=== PATIENT | female | born 1950 | race Caucasian/White ===

== ENCOUNTER → 2016-10-11 | Outpatient (CLI) | payer MEDICARE ==
[~2016-10-11] MED LIST: ACET500T3 PO; ALLE50TA PO; ASPI1TAB69 PO; ASPI81TA11 PO; ASPI81TA82 PO; BENT20TA PO; CALTCHW5 PO; CALTTAB2 PO; COZA100T PO; COZA50TA PO; DICY10 PO; DIGO0.12 PO; DIPH2%T PO; DIPH25CA PO; ESTR0.5T PO; ESTR1.25 PO; FERR324T4 PO; GLUC1CAP14 PO; GLUC500C4 PO; GLUC500T4 PO; LANO0.1212 PO; MAPA500T13 PO; NAPR-576 PO; NAPR500T PO; TYLE500T PO; VESI10TA PO; VESI10TA4 PO
[2016-10-11 10:41] LABS: HEMATOCRIT 33.5 % (35.0-46.0); MEAN CELL VOLUME 93.4 FL (80.0-100.0); MEAN CORPUSCULAR HEMOGLOBIN 32.2 PG (27.0-34.0); MEAN CORPUSCULAR HGB CONC 34.5 % (32.0-36.0); PLATELET COUNT 241 TH/MM3 (150-450); RED BLOOD COUNT 3.59 MIL/MM3 (4.00-5.30); RED CELL DISTRIBUTION WIDTH 13.3 % (11.6-17.2); REVIEW FLAG FINAL; WHITE BLOOD COUNT 6.6 TH/MM3 (4.0-11.0)
[2016-10-11 11:10] LABS: ALKALINE PHOSPHATASE 48 U/L (45-117); ALT (GPT) 19 U/L (10-53); ANION GAP 8 MEQ/L (5-15); AST (GOT) 13 U/L (15-37); BICARBONATE 30.5 MEQ/L (21.0-32.0); BLOOD UREA NITROGEN 16 MG/DL (7-18); CHLORIDE 105 MEQ/L (98-107); GLOMERULAR FILTRATION RATE 54 ML/MIN (>89); GLUCOSE,FASTING 93 MG/DL (74-99); HDL CHOLESTEROL 62.3 MG/DL (40.0-60.0); LDL CHOLESTEROL 67 MG/DL (0-99); POTASSIUM 3.9 MEQ/L (3.5-5.1); SODIUM (NA) 143 MEQ/L (136-145); TOTAL BILIRUBIN ADULT 0.5 MG/DL (0.2-1.0)
== END ==
LOC: CLAB 10:00
PROVIDERS: ATTEND Family Medicine
DX: I10 Essential (primary) hypertension (principal); K21.9 Gastro-esophageal reflux disease without esophagitis; K57.30 Diverticulosis of large intestine without perforation or abscess without bleeding; I48.0 Paroxysmal atrial fibrillation; M15.9 Polyosteoarthritis, unspecified
CPT/HCPCS: 36415; 80053; 80061; 84443; 85027

== ENCOUNTER → 2016-12-23 | Day surgery (SDC) | payer MEDICARE ==
[~2016-12-23] VITALS: Ht 172.7 cm; Wt 75.0 kg
[~2016-12-23] MED LIST changes: -ACET500T3 PO; -ALLE50TA PO; -ASPI1TAB69 PO; -ASPI81TA82 PO; -BENT20TA PO; -CALTTAB2 PO; +CHLORHEXIDINE GLUCONATE 2 % 1 PACK (2 CLOTHS) TOPICAL PRN; -COZA50TA PO; +CYCLOPENTOLATE HCL 1% OPHT SOLN 2 ML BTL LEFT EYE SCH; +CYCLOPENTOLATE HCL 1% OPHT SOLN 2 ML BTL ONE; -DIPH2%T PO; +FLURBIPROFEN 0.03% OPHT SOLN 2.5 ML BTL LEFT EYE SCH; +FLURBIPROFEN 0.03% OPHT SOLN 2.5 ML BTL ONE; -GLUC1CAP14 PO; -GLUC500C4 PO; +INSULIN HUMAN REGULAR 1,000 UNITS/10 ML VIAL SQ PRN; +LACTATED RINGER'S 1000 ML IV PRN; -LANO0.1212 PO; +LIDOCAINE HCL 1% PF 30 ML VIAL ONE; +LIDOCAINE HCL 2% JELLY 5 ML SYRINGE ONE; +LIDOCAINE HCL 2% JELLY 5 ML SYRINGE TOPICAL ONE; +MIDAZOLAM HCL 2 MG/2 ML VIAL ONE; -NAPR-576 PO; +PHENYLEPHRINE HCL 10% OPTH SOLN 5 ML BTL LEFT EYE SCH; +PHENYLEPHRINE HCL 10% OPTH SOLN 5 ML BTL ONE; +POVIDONE IODINE 5% (ANTISEPSIS KIT) 4 APPLICATIONS EACH NARE PRN; +PROPARACAINE HCL 0.5% OPHT SOLN 15 ML BTL LEFT EYE ONE; +PROPARACAINE HCL 0.5% OPHT SOLN 15 ML BTL ONE; +SODIUM CHLORID 0.9% 500 ML IV PRN; +TOBRAMYCIN/DEXAMETHASONE OPTH OINT 3.5 GM TUBE ONE; +TROPICAMIDE 1% OPHT SOLN 15 ML BTL LEFT EYE SCH; +TROPICAMIDE 1% OPHT SOLN 15 ML BTL ONE; -TYLE500T PO; -VESI10TA4 PO
[2016-12-23 06:35] VITALS: BP 140/74; PULSE 69; RESP 14; TEMP 97.8; O2SAT 99
[2016-12-23 08:23] VITALS: TEMP 97.5
[2016-12-23 08:40] VITALS: BP 144/80; PULSE 64; RESP 14; O2SAT 98
--- NOTE | 2016-12-24 10:48 | MP ---
cc: ARCENIO GAXIOLA M.D. [facility] #[id number] DATE OF SURGERY 12/23/2016 PREOPERATIVE DIAGNOSIS Visually significant cataract left eye. POSTOPERATIVE DIAGNOSIS Visually significant cataract left eye. OPERATION Phacoemulsification with posterior chamber lens implantation, left eye. SURGEON Arcenio Gaxiola MD ANESTHESIA Topical with MAC COMPLICATIONS None PROCEDURE After informed consent was obtained, the patient was brought into the operative suite and placed on appropriate monitors by the Anesthesia Service. The patient had been given dilating drops and topical lidocaine gel in the holding area. The patient's operative eye was then prepped and draped in the usual sterile fashion. A wire lid speculum was placed. Further 2% lidocaine was then dropped on the cornea prior to beginning the procedure. A paracentesis incision was made in the peripheral cornea with a 1 mm coral keratome. The anterior chamber was filled with viscoelastic. The anterior chamber was then entered through a stepped, clear corneal incision using a sharp 3 mm coral keratome. A circular tear capsulorrhexis was then made with a bent needle cystitome. Following hydrodissection of the lens nucleus with balance saline, phacoemulsification of the nucleus was performed using a modified chopping technique. The remaining cortex was removed with irrigation/aspiration. The prior two procedures were both performed using the handpieces of the [employer] phaco unit. The capsular bag was then filled with viscoelastic. The intraocular lens was then injected into the capsular bag and positioned. The type of intraocular lens and its power can be found elsewhere in this chart. The remaining viscoelastic was then removed from the anterior chamber with the IA handpiece. The anterior chamber was reformed with balanced saline. The wound was then closed securely with stromal hydration. It was found to be watertight to an intraocular pressure of at least 30 mmHg by palpation. A small amount of balanced salt solution was then removed through the paracentesis site and the intraocular pressure at the end of the case was approximately 20 by palpation. All drapes were then removed. TobraDex ointment was then placed in the eye, which was closed beneath a semi-pressure patch dressing. The patient tolerated this procedure well and left the operating room awake and alert. The patient is to follow-up in my office in the morning. MD NEVAEH Oliveros/JENNIFER /10:24 AM /10:52 AM
== END | disposition home or self-care (01) ==
LOC: CSDC 06:18
PROVIDERS: ATTEND Optometrist Occupational Vision
DX: H25.812 Combined forms of age-related cataract, left eye (principal); H35.342 Macular cyst, hole, or pseudohole, left eye; H52.209 Unspecified astigmatism, unspecified eye; K57.90 Diverticulosis of intestine, part unspecified, without perforation or abscess without bleeding
CPT/HCPCS: 00142; 66984; J2250; J7040; V2632

== ENCOUNTER 2017-01-06 13:46 | Inpatient (IN) | payer MEDICARE ==
[~2017-01-06] VITALS: Ht 172.7 cm; Wt 107.9 kg
[~2017-01-06 13:46] MED LIST changes: -CALTCHW5 PO; -CHLORHEXIDINE GLUCONATE 2 % 1 PACK (2 CLOTHS) TOPICAL PRN; -CYCLOPENTOLATE HCL 1% OPHT SOLN 2 ML BTL LEFT EYE SCH; -CYCLOPENTOLATE HCL 1% OPHT SOLN 2 ML BTL ONE; -ESTR1.25 PO; -FLURBIPROFEN 0.03% OPHT SOLN 2.5 ML BTL LEFT EYE SCH; -FLURBIPROFEN 0.03% OPHT SOLN 2.5 ML BTL ONE; -GLUC500T4 PO; -INSULIN HUMAN REGULAR 1,000 UNITS/10 ML VIAL SQ PRN; -LACTATED RINGER'S 1000 ML IV PRN; -LIDOCAINE HCL 1% PF 30 ML VIAL ONE; -LIDOCAINE HCL 2% JELLY 5 ML SYRINGE ONE; -LIDOCAINE HCL 2% JELLY 5 ML SYRINGE TOPICAL ONE; -MIDAZOLAM HCL 2 MG/2 ML VIAL ONE; -PHENYLEPHRINE HCL 10% OPTH SOLN 5 ML BTL LEFT EYE SCH; -PHENYLEPHRINE HCL 10% OPTH SOLN 5 ML BTL ONE; -POVIDONE IODINE 5% (ANTISEPSIS KIT) 4 APPLICATIONS EACH NARE PRN; -PROPARACAINE HCL 0.5% OPHT SOLN 15 ML BTL LEFT EYE ONE; -PROPARACAINE HCL 0.5% OPHT SOLN 15 ML BTL ONE; -SODIUM CHLORID 0.9% 500 ML IV PRN; -TOBRAMYCIN/DEXAMETHASONE OPTH OINT 3.5 GM TUBE ONE; -TROPICAMIDE 1% OPHT SOLN 15 ML BTL LEFT EYE SCH; -TROPICAMIDE 1% OPHT SOLN 15 ML BTL ONE
[2017-01-06 13:53] VITALS: BP 134/64; PULSE 89; RESP 17; RESP 7; TEMP 98.1; O2SAT 99
--- NOTE | 2017-01-06 14:52 | RADRPT ---
EXAM DATE/TIME: 01/06/2017 14:27 [facility] COMPARISON: KNEE RIGHT COMPLETE (4VWS), January 06, 2017, 14:28. INDICATIONS : Right distal femur pain, fell MEDICAL HISTORY : None. SURGICAL HISTORY : None. ENCOUNTER: Initial ACUITY: 1 day PAIN SCORE: 8/10 LOCATION: Right Femur FINDINGS: Two view examination of the right femur demonstrates no evidence of fracture or dislocation. Bony mi neralization is normal. There is a knee prosthesis in place. There does appear to be a fracture invol ving the superior margin of the patella. CONCLUSION: 1. No acute bony fracture or dislocation of the femur. 2. There appears to be a fracture involving the superior margin of the patella. Geoffrey Medina MD on January 06, 2017 at 14:48 Board Certified Radiologist. This report was verified electronically.
--- NOTE | 2017-01-06 14:52 | RADRPT ---
EXAM DATE/TIME: 01/06/2017 14:28 [facility] COMPARISON: No previous studies available for comparison. INDICATIONS : Right knee, patella, pain. fell MEDICAL HISTORY : None. SURGICAL HISTORY : None. ENCOUNTER: Initial ACUITY: 1 day PAIN SCORE: 8/10 LOCATION: Right Knee FINDINGS: Four view examination of the right knee demonstrates a fracture involving the superior margin of the patella. There is a right knee prosthesis in place. The rest of the bony structures are intact. No regan int dislocation is seen. There is soft tissue swelling over the patella.. CONCLUSION: Fracture through the superior margin of the patella. Geoffrey Medina MD on January 06, 2017 at 14:49 Board Certified Radiologist. This report was verified electronically.
--- NOTE | 2017-01-06 14:53 | RADRPT ---
EXAM DATE/TIME: 01/06/2017 14:30 [facility] COMPARISON: No previous studies available for comparison. INDICATIONS : Right proximal tibia pain, fell MEDICAL HISTORY : None. SURGICAL HISTORY : None. ENCOUNTER: Initial ACUITY: 1 day PAIN SCORE: 8/10 LOCATION: Right Tibia FINDINGS: Two view examination of the right tibia demonstrates no evidence of fracture or dislocation. Bony mi neralization is normal. The soft tissue structures are intact. There is a right knee prosthesis in p lace. CONCLUSION: No acute fracture or joint dislocation. Geoffrey Medina MD on January 06, 2017 at 14:50 Board Certified Radiologist. This report was verified electronically.
--- NOTE | 2017-01-06 14:54 | RADRPT ---
EXAM DATE/TIME: 01/06/2017 14:32 [facility] COMPARISON: No previous studies available for comparison. INDICATIONS : Evaluate left scapula for trauma, fell MEDICAL HISTORY : None. SURGICAL HISTORY : None. ENCOUNTER: Initial ACUITY: 1 day PAIN SCORE: 2/10 LOCATION: Left Scapula FINDINGS: Two view examination of the left scapula demonstrates no evidence of fracture. The glenohumeral and acromioclavicular joints are maintained. Bony mineralization is normal. Tiny calcification adjacent to the tuberosity. CONCLUSION: 1. No acute fracture or joint dislocation. 2. Probable calcific tendinitis. Geoffrey Medina MD on January 06, 2017 at 14:51 Board Certified Radiologist. This report was verified electronically.
--- NOTE | 2017-01-06 15:22 | RADRPT ---
EXAM DATE/TIME: 01/06/2017 14:24 [facility] COMPARISON: No previous studies available for comparison. INDICATIONS : Posterior chest pain, fell MEDICAL HISTORY : None. SURGICAL HISTORY : None. ENCOUNTER: Initial ACUITY: 1 day PAIN SCORE: 9/10 LOCATION: Bilateral chest FINDINGS: Portable AP view of the chest demonstrates a normal-sized cardiac silhouette. No effusion, consolidat ion, or pneumothorax is visualized. The bones and soft tissues demonstrate no acute abnormality. CONCLUSION: No acute cardiopulmonary abnormality is identified. Otis Almanza MD on January 06, 2017 at 15:19 Board Certified Radiologist. This report was verified electronically.
--- NOTE | 2017-01-06 15:29 | PD ---
HPI Chief Complaint: Musculoskeletal Complaint Time Seen by Provider: 13:56 Travel History International Travel<30 days: No Contact w/Intl Traveler<30days: No Traveled to known affect area: No History of Present Illness HPI The patient 66 years old. She arrives by EMS. She was holding a ladder. The person on the top of the ladder fell and landed on her right knee. She's had severe right knee pain since then and a superior displacement of the right patella on exam has been observed by EMS. Onset sudden. Duration about 1 hour. No numbness tingling weakness. She also complains of pain about the left forearm and left scapula. PFSH Past Medical History Hx Anticoagulant Therapy: Yes Arthritis: Yes Anxiety: No Depression: No Heart Rhythm Problems: Yes (UNKNOWN ARRHYTHMIA) Cancer: Yes (SKIN) Cardiovascular Problems: Yes Diabetes: No Diminished Hearing: No Endocrine: No Gastrointestinal Disorders: Yes (IBS, DIVERTICULITIS HX, COLITIS) Genitourinary: Yes (STRESS INCONTINENCE) Headaches: Yes Hepatitis: No Hiatal Hernia: No Hypertension: Yes Immune Disorder: No Implanted Vascular Access Dvce: Yes Musculoskeletal: Yes (ARTHRITIS, RIGHT TOTAL KNEE REPLACEMENT) Neurologic: Yes (NUMBNESS RIGHT FOOT) Psychiatric: Yes (CLAUSTRAPHOBIA) Reproductive: No Respiratory: No Radiation Therapy: No Thyroid Disease: No Tetanus Vaccination: > 5 Years Influenza Vaccination: No Past Surgical History Abdominal Surgery: Yes (LAP ZAYNAB,ABD./ UMB. HERNIA REPAIR, APPY) AICD: No Appendectomy: Yes Body Medical Devices: LOOP RECORDER Cardiac Surgery: No Section: Yes (X3) Ear Surgery: No Endocrine Surgery: No Eye Surgery: Yes (RIGHT CATARACT EXTR./ LASER, RETINAL TEAR REP.) Genitourinary Surgery: Yes (BLADDER SUSPENSION, SLING & REVISION SLING) Gynecologic Surgery: Yes (C SECTION X3) Hysterectomy: Yes Joint Replacement: Yes (RIGHT KNEE) Oral Surgery: No Pacemaker: No Thoracic Surgery: No Other Surgery: Yes Social History Alcohol Use: No Tobacco Use: No Substance Use: No Allergies-Medications (Allergen,Severity, Reaction): Coded Allergies: Morphine (Verified Allergy, Severe, Hives, 01/06/17) Beta Blockers (Verified Adverse Reaction, Severe, Bradycardia, 01/06/17) Lisinopril (Verified Adverse Reaction, Severe, Cough, 01/06/17) Reported Meds & Prescriptions Reported Meds & Active Scripts Active Reported Ferrous Sulfate DR (Ferrous Sulfate) 324 Mg Tabdr 324 Mg PO DAILY Estradiol 0.5 Mg Tab 0.5 Mg PO DAILY Mapap Extra Strength (Acetaminophen) 500 Mg Tab 500-1,000 Mg PO Q4-6H PRN Aspirin EC (Aspirin) 81 Mg Tabdr 81 Mg PO DAILY Bentyl (Dicyclomine HCl) 10 Mg Cap 20 Mg PO TID PRN Diphenhydramine (Diphenhydramine HCl) 25 Mg Cap 25 Mg PO HS PRN Digoxin 0.125 Mg Tab 0.125 Mg PO DAILY Cozaar (Losartan Potassium) 100 Mg Tab 100 Mg PO DAILY Naproxen 500 Mg Tab 500 Mg PO BID Vesicare (Solifenacin) 10 Mg Tab 10 Mg PO DAILY Review of Systems Except as stated in HPI: all other systems reviewed are Neg General / Constitutional: No: Fever Physical Exam Narrative GENERAL: 66-year-old female pleasant well-nourished well-developed SKIN: Focused skin assessment warm/dry. HEAD: Atraumatic. Normocephalic. EYES: Pupils equal and round. No scleral icterus. No injection or drainage. ENT: No nasal bleeding or discharge. Mucous membranes pink and moist. NECK: Trachea midline. No JVD. CARDIOVASCULAR: Regular rate and rhythm. No murmur appreciated. RESPIRATORY: No accessory muscle use. Clear to auscultation. Breath sounds equal bilaterally. GASTROINTESTINAL: Abdomen soft, non-tender, nondistended. Hepatic and splenic margins not palpable. MUSCULOSKELETAL: The patella on the right side is displaced superiorly. The patient can flex her knee. 2+ dorsalis pedis bilaterally. There are small skin tears in the left forearm. Minimal ecchymosis about the region of the scapula. There is trace tenderness to percussion along the region of the lower posterior costal margin. NEUROLOGICAL: Awake and alert. No obvious cranial nerve deficits. Motor grossly within normal limits. Normal speech. PSYCHIATRIC: Appropriate mood and affect; insight and judgment normal. Data Data Last Documented VS Vital Signs Date Time Temp Pulse Resp B/P Pulse Ox O2 Delivery O2 Flow Rate FiO2 01/06/17 16:26 97.8 81 16 144/64 98 Room Air Vital signs reviewed Orders Femur (Ap & Lat/2vws) (01/06/17 13:57) Knee, Complete (4vws) (01/06/17 13:57) Tibia/Fibula (Ap/Lat) (01/06/17 13:57) ^ Knee Immobilizer (01/06/17 13:57) Ice/Cold Pack (01/06/17 13:57) Scapula (01/06/17 ) Chest, Single Ap (01/06/17 ) Wound Care (01/06/17 13:57) Complete Blood Count With Diff (01/06/17 16:09) Comprehensive Metabolic Panel (01/06/17 16:09) Prothrombin Time / Inr (Pt) (01/06/17 16:09) Act Partial Throm Time (Ptt) (01/06/17 16:09) Type And Screen (01/06/17 16:09) Iv Access Insert/Monitor (01/06/17 16:09) Oximetry (01/06/17 16:09) Ecg Monitoring (01/06/17 16:09) Sodium Chloride 0.9% Flush (Ns Flush) (01/06/17 16:15) Diet Heart Healthy (01/06/17 Dinner) Npo After Midnight W/ Po Meds (01/06/17 Dinner) Ondansetron Inj (Zofran Inj) (01/06/17 16:45) Sodium Chlor 0.9% 1000 Ml Inj (Ns 1000 M (01/06/17 16:45) Vital Signs (Adult) JOEL.Q4H (01/06/17 16:31) Hydromorphone Pf Inj (Dilaudid Pf Inj) (01/06/17 16:45) Ondansetron Inj (Zofran Inj) (01/06/17 16:45) Consult Orthopedic (01/06/17 ) Admit Order (Ed Use Only) (01/06/17 16:31) Labs Laboratory Tests Test 01/06/17 01/06/17 16:01 16:05 White Blood Count 13.8 TH/MM3 Red Blood Count 3.55 MIL/MM3 Hemoglobin 10.9 GM/DL Hematocrit 33.4 % Mean Corpuscular Volume 94.0 FL Mean Corpuscular Hemoglobin 30.8 PG Mean Corpuscular Hemoglobin 32.7 % Concent Red Cell Distribution Width 12.8 % Platelet Count 265 TH/MM3 Mean Platelet Volume 9.7 FL Neutrophils (%) (Auto) 76.9 % Lymphocytes (%) (Auto) 15.4 % Monocytes (%) (Auto) 5.4 % Eosinophils (%) (Auto) 1.6 % Basophils (%) (Auto) 0.7 % Neutrophils # (Auto) 10.6 TH/MM3 Lymphocytes # (Auto) 2.1 TH/MM3 Monocytes # (Auto) 0.7 TH/MM3 Eosinophils # (Auto) 0.2 TH/MM3 Basophils # (Auto) 0.1 TH/MM3 CBC Comment DIFF FINAL Differential Comment Prothrombin Time 10.6 SEC Prothromb Time International 1.0 RATIO Ratio Activated Partial 23.6 SEC Thromboplast Time Sodium Level 141 MEQ/L Potassium Level 4.3 MEQ/L Chloride Level 107 MEQ/L Carbon Dioxide Level 28.9 MEQ/L Anion Gap 5 MEQ/L Blood Urea Nitrogen 23 MG/DL Creatinine 1.02 MG/DL Estimat Glomerular Filtration 54 ML/MIN Rate Random Glucose 99 MG/DL Calcium Level 9.2 MG/DL Total Bilirubin 0.4 MG/DL Aspartate Amino Transf 13 U/L (AST/SGOT) Alanine Aminotransferase 18 U/L (ALT/SGPT) Alkaline Phosphatase 52 U/L Total Protein 6.4 GM/DL Albumin 3.4 GM/DL Blood Type A POSITIVE Antibody Screen NEGATIVE MDM Medical Decision Making Medical Screen Exam Complete: Yes Emergency Medical Condition: Yes Medical Record Reviewed: Yes Differential Diagnosis Patella fracture, femur fracture, tib-fib fracture, scapular injury, pulmonary contusion, electrolyte imbalance Narrative Course CBC & BMP Diagram 01/06/17 16:01 LFTs are normal Last 24 hours Impressions Tibia/Fibula X-Ray 01/06/17 196 Signed Impressions: Service Date/Time: January 14:30 - CONCLUSION: No acute fracture or joint dislocation. Geoffrey Medina MD Knee X-Ray 01/06/17 865 Signed Impressions: Service Date/Time: January 14:28 - CONCLUSION: Fracture through the superior margin of the patella. Geoffrey Medina MD Femur X-Ray 01/06/17 2805 Signed Impressions: Service Date/Time: January 14:27 - CONCLUSION: 1. No acute bony fracture or dislocation of the femur. 2. There appears to be a fracture involving the superior margin of the patella. Geoffrey Medina MD Scapular X-Ray 01/06/17 0000 Signed Impressions: Service Date/Time: January 14:32 - CONCLUSION: 1. No acute fracture or joint dislocation. 2. Probable calcific tendinitis. Geoffrey Medina MD Chest X-Ray 01/06/17 0000 Signed Impressions: Service Date/Time: January 14:24 - CONCLUSION: No acute cardiopulmonary abnormality is identified. Otis Almanza MD The immobilizer applied. This case was discussed with Dr. Dietrich of orthopedics who requests nothing by mouth past midnight. The case was discussed with Dr Womack for [facility]. Upon reassessment prior to admission the patient complained of pain in the right posterior chest worse with percussion. 0.5 mg IV hydromorphone ordered. Diagnosis Primary Impression: Right patella fracture Qualified Code: S82.091A - Other closed fracture of right patella, initial encounter Admitting Information Admitting Physician Requests: Admit Kj Ibarra MD Jan 06, 2017 15:29
[2017-01-06 16:15] VITALS: RESP 16; O2SAT 99
[2017-01-06] MEDS: SODIUM CHLORIDE 0.9% FLUSH 10 ML FLUSH IVF PRN (16:16)
[2017-01-06 16:26] VITALS: BP 144/64; PULSE 81; RESP 16; TEMP 97.8; O2SAT 98
[2017-01-06] MEDS ORDERED: HYDROmorphone HCL PF 1 MG/ML VIAL IV PUSH ONE (16:45)
[2017-01-06] MEDS ORDERED: ONDANSETRON HCL 4 MG/2 ML VIAL IV PUSH ONE (16:45)
[2017-01-06] MEDS ORDERED: ONDANSETRON HCL 4 MG/2 ML VIAL IV PUSH PRN (16:45)
[2017-01-06 16:47] LABS: AUTOMATED NEUTROPHIL # 10.6 TH/MM3 (1.8-7.7); BASOPHIL # 0.1 TH/MM3 (0-0.2); BASOPHIL % 0.7 % (0.0-2.0); EOSINOPHIL # 0.2 TH/MM3 (0-0.4); EOSINOPHIL % 1.6 % (0.0-4.0); HEMATOCRIT 33.4 % (35.0-46.0); HEMO FLAGS DIFF FINAL; LYMPH % 15.4 % (9.0-44.0); LYMPHOCYTE # 2.1 TH/MM3 (1.0-4.8); MEAN CORPUSCULAR HEMOGLOBIN 30.8 PG (27.0-34.0); MEAN CORPUSCULAR HGB CONC 32.7 % (32.0-36.0); MONO % 5.4 % (0.0-8.0); NEUT % 76.9 % (16.0-70.0); PLATELET COUNT 265 TH/MM3 (150-450); RED BLOOD COUNT 3.55 MIL/MM3 (4.00-5.30); RED CELL DISTRIBUTION WIDTH 12.8 % (11.6-17.2); WHITE BLOOD COUNT 13.8 TH/MM3 (4.0-11.0)
[2017-01-06 16:57] LABS: ALT (GPT) 18 U/L (10-53); ANION GAP 5 MEQ/L (5-15); AST (GOT) 13 U/L (15-37); BICARBONATE 28.9 MEQ/L (21.0-32.0); BLOOD UREA NITROGEN 23 MG/DL (7-18); CHLORIDE 107 MEQ/L (98-107); GLOMERULAR FILTRATION RATE 54 ML/MIN (>89); POTASSIUM 4.3 MEQ/L (3.5-5.1); SODIUM (NA) 141 MEQ/L (136-145)
[2017-01-06 17:00] LABS: ALKALINE PHOSPHATASE 52 U/L (45-117); APTT (PATIENT) 23.6 SEC (24.3-30.1); PROTHROMBIN TIME - PATIENT 10.6 SEC (9.8-11.6); TOTAL BILIRUBIN ADULT 0.4 MG/DL (0.2-1.0)
[2017-01-06] MEDS ORDERED: HYDROmorphone HCL PF 1 MG/ML VIAL IV PUSH PRN (17:00)
[2017-01-06] MEDS ORDERED: ACETAMINOPHEN/HYDROcodone 325 MG/5 MG TAB PO PRN (17:00)
[2017-01-06] MEDS ORDERED: diphenhydrAMINE HCL 25 MG CAP PO PRN (17:00)
--- NOTE | 2017-01-06 17:02 | HHI.HP ---
[facility] Bernadette Hickman MD Admission Diagnosis R Patella Fx; L Forearm Contusion/Abrasion Diagnoses: Travel History International Travel<30 Days: No Contact w/Intl Traveler <30 Da: No Traveled to Known Affected Are: No History of Present Illness Written by Alfredo Avalos, acting as scribe for Dr. Womack on 01/06/17 at 16:49. 66-year-old female with past medical history of HTN, A. fib who presented after a ladder fell on her. Patient states she was holding a ladder in the person of the top ladder fell off and the ladder fell on her. She states the latter hit her in the right knee, left arm, mild, shoulder. She was found to have right patellar fracture in the ED and her orthopedic surgeon, Dr. Dietrich, was contacted and plans on operative repair in the morning. Right knee pain 3/10. The patient states that she twisted her that whenever she fell and has some muscle spasms in her mid back. Back pain 7/10. She does have lacerations on her left arm. Both in the back in the knee, she denies any other pain. She doesn't recall any head injury, loss of consciousness, or headache. Review of Systems Except as stated in HPI: all other systems reviewed are Neg Past Family Social History Past Medical History Hypertension Atrial fibrillation History of diverticulitis Stress incontinence Past Surgical History Right knee replacement Appendectomy Cholecystectomy Umbilical hernia repair 3 Hysterectomy Bladder suspension Bilateral cataract surgery Reported Medications Ferrous Sulfate DR (Ferrous Sulfate) 324 Mg Tabdr 324 Mg PO DAILY Estradiol 0.5 Mg Tab 0.5 Mg PO DAILY Mapap Extra Strength (Acetaminophen) 500 Mg Tab 500-1,000 Mg PO Q4-6H PRN Aspirin EC (Aspirin) 81 Mg Tabdr 81 Mg PO DAILY Bentyl (Dicyclomine HCl) 10 Mg Cap 20 Mg PO TID PRN Diphenhydramine (Diphenhydramine HCl) 25 Mg Cap 25 Mg PO HS PRN Digoxin 0.125 Mg Tab 0.125 Mg PO DAILY Cozaar (Losartan Potassium) 100 Mg Tab 100 Mg PO DAILY Naproxen 500 Mg Tab 500 Mg PO BID Vesicare (Solifenacin) 10 Mg Tab 10 Mg PO DAILY Allergies: Coded Allergies: Morphine (Verified Allergy, Severe, Hives, 01/06/17) Beta Blockers (Verified Adverse Reaction, Severe, Bradycardia, 01/06/17) Lisinopril (Verified Adverse Reaction, Severe, Cough, 01/06/17) Active Ordered Medications Current Medications Medications (Trade) Dose Ordered Sig/Mariela Route Start Time Stop Time Status Last Admin (NS Flush) 2 ml UNSCH PRN IVF 01/06/17 16:15 01/06/17 16:16 Ondansetron HCl 4 mg 4 mg Q8HR PRN IV PUSH 01/06/17 16:45 UNV (NS 1000 ml Inj) 1,000 ml @ 100 mls/hr Q10H IV 01/06/17 16:45 UNV Family History Mother had diabetes, high blood pressure, CAD Father had gout Social History Denies alcohol, tobacco, or drug use Physical Exam Vital Signs Vital Signs Date Time Temp Pulse Resp B/P Pulse Ox O2 Delivery O2 Flow Rate FiO2 01/06/17 16:26 97.8 81 16 144/64 98 Room Air 01/06/17 16:15 16 99 Room Air 01/06/17 13:55 16 01/06/17 13:53 98.1 89 17 134/64 99 Physical Exam GENERAL: Well-developed well-nourished. In no acute distress. SKIN: Warm and dry. Left forearm with clean dressing. HEENT: Normocephalic. Pupils equal and round. Mucous membranes pink and moist. CARDIOVASCULAR: Regular rate and rhythm. No murmur appreciated. RESPIRATORY: No accessory muscle use. Clear to auscultation. Breath sounds equal bilaterally. GASTROINTESTINAL: Abdomen soft, non-tender, nondistended. Bowel sounds x4. BACK: No spinal TTP or bony step-offs. Paravertebral muscle spasm in the thoracic area. MUSCULOSKELETAL: Right knee with superior displacement of the patella. No clubbing or cyanosis. No edema. NEUROLOGICAL: Awake and alert. No focal neurological deficits. Moves upper and lower extremities spontaneously. Normal speech. PSYCHIATRIC: Appropriate mood and affect; insight and judgment normal. Laboratory Laboratory Tests Test 01/06/17 16:01 White Blood Count 13.8 Red Blood Count 3.55 Hemoglobin 10.9 Hematocrit 33.4 Mean Corpuscular Volume 94.0 Mean Corpuscular Hemoglobin 30.8 Mean Corpuscular Hemoglobin 32.7 Concent Red Cell Distribution Width 12.8 Platelet Count 265 Mean Platelet Volume 9.7 Neutrophils (%) (Auto) 76.9 Lymphocytes (%) (Auto) 15.4 Monocytes (%) (Auto) 5.4 Eosinophils (%) (Auto) 1.6 Basophils (%) (Auto) 0.7 Neutrophils # (Auto) 10.6 Lymphocytes # (Auto) 2.1 Monocytes # (Auto) 0.7 Eosinophils # (Auto) 0.2 Basophils # (Auto) 0.1 CBC Comment DIFF FINAL Differential Comment Result Diagram: 01/06/17 1601 Imaging Last Impressions Tibia/Fibula X-Ray 01/06/17 1357 Signed Impressions: Service Date/Time: January 14:30 - CONCLUSION: No acute fracture or joint dislocation. Geoffrey Medina MD Knee X-Ray 01/06/17 1357 Signed Impressions: Service Date/Time: January 14:28 - CONCLUSION: Fracture through the superior margin of the patella. Geoffrey Medina MD Femur X-Ray 01/06/17 1357 Signed Impressions: Service Date/Time: January 14:27 - CONCLUSION: 1. No acute bony fracture or dislocation of the femur. 2. There appears to be a fracture involving the superior margin of the patella. Geoffrey Medina MD Scapular X-Ray 01/06/17 0000 Signed Impressions: Service Date/Time: January 14:32 - CONCLUSION: 1. No acute fracture or joint dislocation. 2. Probable calcific tendinitis. Geoffrey Medina MD Chest X-Ray 01/06/17 0000 Signed Impressions: Service Date/Time: January 14:24 - CONCLUSION: No acute cardiopulmonary abnormality is identified. Otis Almanza MD Assessment and Plan Assessment and Plan 66-year-old female with past medical history of HTN, A. fib who presented after a ladder fell on her and found have right patellar fracture Patella fracture: Seen on the x-ray. Patient's orthopedic surgeon consulted, plan operative repair. NPO after midnigh, IVF t. Pain control with oral and intravenous narcotics as needed. S/P trauma: The patient had a ladder fall on her. With patella fracture as above. Otherwise purchasing clerk imaging of the right lower extremity chest, and scapula with no acute process. Continue local wound care for lacerations left forearm. Continue pain medication as above. Atrial fibrillation: Chronic, stable. Hold aspirin preoperatively. Continue digoxin. Hypertension: Currently normotensive. Continue losartan. DVT prophylaxis: Per orthopedics. Discussed Condition With Patient with family/friends at bedside, ED staff Alfredo Avalos Jan 06, 2017 17:02 Tyshawn Womack MD Jan 06, 2017 17:03
[2017-01-06] MEDS: SODIUM CHLOR 0.9% 1000 ML INJ 1,000 ML IV SCH (18:07)
[2017-01-06] MEDS ORDERED: TRANEXAMIC ACID INJ 720 MG in SODIUM CHLORIDE 0.9% INJ 100 ML IV SCH (18:15)
[2017-01-06] MEDS ORDERED: CHLORHEXIDINE GLUCONATE 4% SOLN 120 ML BTL TOPICAL SCH (18:15)
[2017-01-06] MEDS ORDERED: PILL SPLITTER OTHER PRN (18:15)
[2017-01-06] MEDS ORDERED: BUPIVACAINE LIPOSO PF 1.3% INJ 20 ML in SODIUM CHLORIDE 0.9% INJ 40 ML P-ARTICULR SCH (18:15)
[2017-01-06] MEDS ORDERED: ceFAZolin 2 GM PREMIX 50 ML IV SCH (18:15)
[2017-01-06 18:27] VITALS: BP 130/71; TEMP 97.8
--- NOTE | 2017-01-06 18:34 | PD.CONS ---
cc: Bernadette Hickman Jr., MD; Alec Dietrich MD (Charles) HPI Service Orthopedic Surgeons Consult Requested By Primary Care Physician Bernadette Hickman MD Admission Diagnosis R Patella Fx; L Forearm Contusion/Abrasion Diagnoses: (1) Status post total right knee replacement Diagnosis: Secondary (2) Right patella fracture Diagnosis: Principal Chief Complaint: Right knee injury. History of Present Illness This 66 year old woman was holding a ladder for someone when that person fell off the ladder onto her, injuring her right knee. She had a total knee replacement done by me a few years ago. She was brought by ambulance to the ED. Past Family Social History Past Medical History Hypertension Atrial fibrillation History of diverticulitis Stress incontinence Past Surgical History Right knee replacement Appendectomy Cholecystectomy Umbilical hernia repair 3 Hysterectomy Bladder suspension Bilateral cataract surgery Allergies: Coded Allergies: Morphine (Verified Allergy, Severe, Hives, 01/06/17) Beta Blockers (Verified Adverse Reaction, Severe, Bradycardia, 01/06/17) Lisinopril (Verified Adverse Reaction, Severe, Cough, 01/06/17) Active Ordered Medications Current Medications Medications (Trade) Dose Ordered Sig/Mariela Route Start Time Stop Time Status Last Admin (NS Flush) 2 ml UNSCH PRN IVF 01/06/17 16:15 01/06/17 16:16 Ondansetron HCl 4 mg 4 mg Q8HR PRN IV PUSH 01/06/17 16:45 UNV (NS 1000 ml Inj) 1,000 ml @ 100 mls/hr Q10H IV 01/06/17 16:45 ([place] 5-325 Mg) 1 tab Q4H PRN PO 01/06/17 17:00 ([place] 5-325 Mg) 2 tab Q4H PRN PO 01/06/17 17:00 (Dilaudid Pf Inj) 0.5 mg Q4H PRN IV PUSH 01/06/17 17:00 (Lanoxin) 0.125 mg DAILY PO 01/07/17 09:00 (Benadryl) 25 mg HS PRN PO 01/06/17 17:00 (Estradiol) 0.5 mg DAILY PO 01/07/17 09:00 (Cozaar) 100 mg DAILY PO 01/07/17 09:00 Non-Formulary Medication 324 mg DAILY PO 01/07/17 09:00 UNV Non-Formulary Medication 10 mg DAILY PO 01/07/17 09:00 UNV (Pill Splitter) 1 ea UNSCH PRN OTHER 01/06/17 18:15 Reported Meds & Active Scripts Active Reported Ferrous Sulfate DR (Ferrous Sulfate) 324 Mg Tabdr 324 Mg PO DAILY Estradiol 0.5 Mg Tab 0.5 Mg PO DAILY Mapap Extra Strength (Acetaminophen) 500 Mg Tab 500-1,000 Mg PO Q4-6H PRN Aspirin EC (Aspirin) 81 Mg Tabdr 81 Mg PO DAILY Bentyl (Dicyclomine HCl) 10 Mg Cap 20 Mg PO TID PRN Diphenhydramine (Diphenhydramine HCl) 25 Mg Cap 25 Mg PO HS PRN Digoxin 0.125 Mg Tab 0.125 Mg PO DAILY Cozaar (Losartan Potassium) 100 Mg Tab 100 Mg PO DAILY Naproxen 500 Mg Tab 500 Mg PO BID Vesicare (Solifenacin) 10 Mg Tab 10 Mg PO DAILY Family History Mother had diabetes, high blood pressure, CAD Father had gout Social History Denies alcohol, tobacco, or drug use Physical Exam Vital Signs Vital Signs Date Time Temp Pulse Resp B/P Pulse Ox O2 Delivery O2 Flow Rate FiO2 01/06/17 17:32 16 01/06/17 16:26 97.8 81 16 144/64 98 Room Air 01/06/17 16:15 16 99 Room Air 01/06/17 13:55 16 01/06/17 13:53 98.1 89 17 134/64 99 Physical Exam The right knee has a well healed vertical surgical scar on the anterior aspect of the knee. The patella has a palpable comminuted fracture with a large effusion. The neurovascular status is intact. No other injury to the knee or prosthesis is identified. Laboratory Laboratory Tests Test 01/06/17 01/06/17 16:01 16:05 White Blood Count 13.8 Red Blood Count 3.55 Hemoglobin 10.9 Hematocrit 33.4 Mean Corpuscular Volume 94.0 Mean Corpuscular Hemoglobin 30.8 Mean Corpuscular Hemoglobin 32.7 Concent Red Cell Distribution Width 12.8 Platelet Count 265 Mean Platelet Volume 9.7 Neutrophils (%) (Auto) 76.9 Lymphocytes (%) (Auto) 15.4 Monocytes (%) (Auto) 5.4 Eosinophils (%) (Auto) 1.6 Basophils (%) (Auto) 0.7 Neutrophils # (Auto) 10.6 Lymphocytes # (Auto) 2.1 Monocytes # (Auto) 0.7 Eosinophils # (Auto) 0.2 Basophils # (Auto) 0.1 CBC Comment DIFF FINAL Differential Comment Prothrombin Time 10.6 Prothromb Time International 1.0 Ratio Activated Partial 23.6 Thromboplast Time Sodium Level 141 Potassium Level 4.3 Chloride Level 107 Carbon Dioxide Level 28.9 Anion Gap 5 Blood Urea Nitrogen 23 Creatinine 1.02 Estimat Glomerular Filtration 54 Rate Random Glucose 99 Calcium Level 9.2 Total Bilirubin 0.4 Aspartate Amino Transf 13 (AST/SGOT) Alanine Aminotransferase 18 (ALT/SGPT) Alkaline Phosphatase 52 Total Protein 6.4 Albumin 3.4 Blood Type A POSITIVE Antibody Screen NEGATIVE Result Diagram: 01/06/17 1601 01/06/17 1601 Imaging Total knee in place with comminuted, displaced fracture of the right patella. Last 72 hours Impressions Tibia/Fibula X-Ray 01/06/17 135 Signed Impressions: Service Date/Time: January 14:30 - CONCLUSION: No acute fracture or joint dislocation. Geoffrey Medina MD Knee X-Ray 01/06/17 135 Signed Impressions: Service Date/Time: January 14:28 - CONCLUSION: Fracture through the superior margin of the patella. Geoffrey Medina MD Femur X-Ray 01/06/17 135 Signed Impressions: Service Date/Time: January 14:27 - CONCLUSION: 1. No acute bony fracture or dislocation of the femur. 2. There appears to be a fracture involving the superior margin of the patella. Geoffrey Medina MD Scapular X-Ray 01/06/17 0000 Signed Impressions: Service Date/Time: January 14:32 - CONCLUSION: 1. No acute fracture or joint dislocation. 2. Probable calcific tendinitis. Geoffrey Medina MD Chest X-Ray 01/06/17 0000 Signed Impressions: Service Date/Time: January 14:24 - CONCLUSION: No acute cardiopulmonary abnormality is identified. Otis Almanza MD Assessment & Plan Ortho Post Op Day #: -1 Problem List: (1) Right patella fracture Plan: The right knee has been stabilized with a CKS. She is scheduled for surgery tomorrow at about 1300. I have discussed the findings, options and plans with the patient and her daughter, including possible complications, expected results and expected course of treatment and have neither expressed nor implied guarantees. Assessment and Plan Anticipated healing time is 6-8 weeks or more. Alec Dietrich MD (Charles) Jan 06, 2017 18:34
[2017-01-06 19:11] VITALS: BP 137/65; PULSE 72; RESP 17; TEMP 98.1; O2SAT 98
[2017-01-06] MEDS: ACETAMINOPHEN/HYDROcodone 325 MG/5 MG TAB PO PRN (20:26)
[2017-01-07] VITALS (8 sets, daily range): BP systolic 127–154; BP diastolic 61–72; PULSE 67–75; RESP 16–18; TEMP 96–97; O2SAT 95–100
[2017-01-07] MEDS ORDERED: TRANEXAMIC ACID INJ 720 MG in SODIUM CHLORIDE 0.9% INJ 100 ML IV SCH ×2
[2017-01-07] MEDS ORDERED: CHLORHEXIDINE GLUCONATE 2 % 1 PACK (2 CLOTHS) TOPICAL PRN (00:30)
[2017-01-07] MEDS ORDERED: POVIDONE IODINE 5% (ANTISEPSIS KIT) 4 APPLICATIONS EACH NARE PRN (00:30)
[2017-01-07] MEDS ORDERED: SODIUM CHLORID 0.9% 500 ML IV PRN (00:30)
[2017-01-07] MEDS ORDERED: LACTATED RINGER'S 1000 ML IV PRN (00:30)
[2017-01-07] MEDS ORDERED: INSULIN HUMAN REGULAR 1,000 UNITS/10 ML VIAL SQ PRN (00:30)
[2017-01-07] MEDS: ACETAMINOPHEN/HYDROcodone 325 MG/5 MG TAB PO PRN ×2 (02:58→11:16)
[2017-01-07] MEDS: SODIUM CHLOR 0.9% 1000 ML INJ 1,000 ML IV SCH ×2 (03:00→07:52)
[2017-01-07] MEDS: FERROUS SULFATE 325 MG (65 MG ELEMENTAL IRON) TAB PO SCH (06:55)
[2017-01-07] MEDS: SODIUM CHLORIDE 0.9% FLUSH 10 ML FLUSH IVF PRN (07:49)
[2017-01-07] MEDS: DIGOXIN 0.125 MG TAB PO SCH (07:49)
[2017-01-07] MEDS: ESTRADIOL 1 MG TAB PO SCH (07:49)
[2017-01-07] MEDS: LOSARTAN 50 MG TAB PO SCH (07:50)
[2017-01-07] MEDS: TOLTERODINE TARTRATE 4 MG CAP LA PO SCH (07:50)
--- NOTE | 2017-01-07 10:19 | HHI.PR ---
Subjective Remarks in no acute distress. pain to the right knee is fairly controlled. awaiting surgery. d/w the RN and no acute issues over night. Objective Vitals Vital Signs Date Time Temp Pulse Resp B/P Pulse Ox O2 Delivery O2 Flow Rate FiO2 01/07/17 04:00 96.3 74 17 133/63 99 01/07/17 00:00 97.0 75 17 127/61 95 01/06/17 19:11 98.1 72 17 137/65 98 01/06/17 18:27 97.8 78 16 130/71 99 01/06/17 17:32 16 01/06/17 16:26 97.8 81 16 144/64 98 Room Air 01/06/17 16:15 16 99 Room Air 01/06/17 13:55 16 01/06/17 13:53 98.1 89 17 134/64 99 I/O 01/06/17 01/06/17 01/06/17 01/07/17 01/07/17 01/07/17 07:00 15:00 23:00 07:00 15:00 23:00 Intake Total 480 ml 240 ml Balance 480 ml 240 ml Intake Oral 480 ml 240 ml # Voids 1 3 # Bowel Movements 0 0 Result Diagram: 01/06/17 1601 01/06/17 1601 Imaging Last Impressions Tibia/Fibula X-Ray [id number]/06/[id number] Signed Impressions: Service Date/Time: January 14:30 - CONCLUSION: No acute fracture or joint dislocation. Geoffrey Medina MD Knee X-Ray [id number]/[id number] Signed Impressions: Service Date/Time: January 14:28 - CONCLUSION: Fracture through the superior margin of the patella. Geoffrey Medina MD Femur X-Ray 01/06/17 135 Signed Impressions: Service Date/Time: January 14:27 - CONCLUSION: 1. No acute bony fracture or dislocation of the femur. 2. There appears to be a fracture involving the superior margin of the patella. Geoffrey Medina MD Scapular X-Ray 01/06/17 0000 Signed Impressions: Service Date/Time: January 14:32 - CONCLUSION: 1. No acute fracture or joint dislocation. 2. Probable calcific tendinitis. Geoffrey Medina MD Chest X-Ray 01/06/17 0000 Signed Impressions: Service Date/Time: January 14:24 - CONCLUSION: No acute cardiopulmonary abnormality is identified. Otis Almanza MD Objective Remarks GENERAL: This is a well-nourished, well-developed patient, in no apparent distress. CARDIOVASCULAR: Regular rate and regular rhythm without murmurs, gallops, or rubs. RESPIRATORY: Clear to auscultation. Breath sounds equal bilaterally. No wheezes , rales, or rhonchi. GASTROINTESTINAL: Abdomen soft, non-tender, nondistended. Normal, active bowel sounds MUSCULOSKELETAL: right knee in stabilizer NEURO: Alert & Oriented x4 to person, place, time, situation. Moves all ext x4 Medications and IVs Current Medications Sodium Chloride (NS Flush) 2 ml UNSCH PRN IVF FLUSH AFTER USING IV ACCESS Last administered on 01/07/17 07:49; Start 01/06/17 at 16:15 Ondansetron HCl 4 mg 4 mg Q8HR PRN IV PUSH NAUSEA; Start 01/06/17 at 16:45 Sodium Chloride (NS 1000 ml Inj) 1,000 ml @ 100 mls/hr Q10H IV Last administered on 01/07/17 03:00; Start 01/06/17 at 16:45 Hydromorphone HCl (Dilaudid Pf Inj) 0.5 mg ONCE ONCE IV PUSH Last administered on 01/06/17 17:02; Start 01/06/17 at 16:45; Stop 01/06/17 at 16:46; Status DC Ondansetron HCl (Zofran Inj) 4 mg ONCE ONCE IV PUSH ; Start 01/06/17 at 16:45; Stop 01/06/17 at 16:46; Status DC Acetaminophen/ Hydrocodone Bitart ([place] 5-325 Mg) 1 tab Q4H PRN PO PAIN 1-5; Start 01/06/17 at 17:00 Acetaminophen/ Hydrocodone Bitart ([place] 5-325 Mg) 2 tab Q4H PRN PO PAIN 6-10 Last administered on 01/07/17 02:58; Start 01/06/17 at 17:00 Hydromorphone HCl (Dilaudid Pf Inj) 0.5 mg Q4H PRN IV PUSH BREAKTHROUGH PAIN; Start 01/06/17 at 17:00 Digoxin (Lanoxin) 0.125 mg DAILY PO Last administered on 01/07/17 07:49; Start 01/07/17 at 09:00 Diphenhydramine HCl (Benadryl) 25 mg HS PRN PO INSOMNIA; Start 01/06/17 at 17:00 Estradiol (Estradiol) 0.5 mg DAILY PO Last administered on 01/07/17 07:49; Start 01/07/17 at 09:00 Losartan Potassium (Cozaar) 100 mg DAILY PO Last administered on 01/07/17 07:50 ; Start 01/07/17 at 09:00 Ferrous Sulfate (Ferrous Sulfate) 325 mg DAILY PO NS; Start 01/07/17 at 09:00 Tolterodine Tartrate (Detrol La) 4 mg DAILY PO ; Start 01/07/17 at 09:00 Miscellaneous (Pill Splitter) 1 ea UNSCH PRN OTHER SEE LABEL COMMENTS; Start at 18:15 Chlorhexidine Gluconate 1 applic 1 applic ONCE TOPICAL ; Start 01/06/17 at 18:15 ; Stop 01/10/17 at 18:14 Tranexamic Acid 720 mg/Sodium Chloride 107.2 ml @ 200 mls/hr ONCE IV ; Start at 18:15; Stop 01/07/17 at 18:14 Tranexamic Acid 720 mg/Sodium Chloride 107.2 ml @ 200 mls/hr ONCE IV ; Start at 00:00; Stop 01/08/17 at 00:00 Bupivacaine Liposome 20 ml/ Sodium Chloride 60 ml @ 120 mls/hr ONCE P-ARTICULR ; Start 01/06/17 at 18:15; Stop 01/07/17 at 18:14 Cefazolin Sodium/ Dextrose 50 ml @ 150 mls/hr MEAT BUTCHER IV ; Start 01/06/17 at 18 :15; Stop 01/10/17 at 18:14 Lactated Ringer's 1,000 ml @ 30 mls/hr Q24H PRN IV SEE LABEL COMMENTS; Start at 00:30; Stop 01/10/17 at 00:29 Sodium Chloride (NS 500 ml Inj) 500 ml @ 30 mls/hr [id number] PRN IV SEE LABEL COMMENTS; Start 01/07/17 at 00:30; Stop 01/10/17 at 00:29 Povidone Iodine (Betadine 5% Antisepsis Kit) 1 applic MEAT BUTCHER PRN EACH NARE SEE LABEL COMMENTS; Start 01/07/17 at 00:30; Stop 01/10/17 at 00:29 Chlorhexidine Gluconate (Chlorhexidine 2% Cloth) 3 pack MEAT BUTCHER PRN TOPICAL SEE LABEL COMMENTS; Start 01/07/17 at 00:30; Stop 01/10/17 at 00:29 Insulin Human Regular (NovoLIN R INJ) See Protocol Table ... MEAT BUTCHER PRN SQ SEE PROTOCOL TABLE; Start 01/07/17 at 00:30; Stop 01/10/17 at 00:29 A/P Assessment and Plan 66-year-old female with past medical history of HTN, A. fib who presented after a ladder fell on her and found have right patellar fracture Patella fracture: Seen on the x-ray. Patient's orthopedic surgeon consulted, plan operative repair this afternoon. continue Pain control . S/P trauma: The patient had a ladder fall on her. With patella fracture as above. Otherwise enrollment services vice president imaging of the right lower extremity chest, and scapula with no acute process. Continue local wound care for lacerations left forearm. Continue pain medication as above. Atrial fibrillation: Chronic, stable. Hold aspirin preoperatively. Continue digoxin. Hypertension: Currently normotensive. Continue losartan. DVT prophylaxis: Per orthopedics. Discharge Planning when cleared by ortho. Tyshawn Womack MD Jan 07, 2017 10:19
[2017-01-07] MEDS ORDERED: MAGNESIUM HYDROXIDE SUSP 30 ML CUP PO PRN ×2 (10:30→15:00)
[2017-01-07] MEDS ORDERED: PRED1SUS EACH EYE (11:20)
[2017-01-07] MEDS ORDERED: ePHEDrine/NS 25 MG/5 ML SYR IV ONE (12:00)
[2017-01-07] MEDS ORDERED: PROPOFOL 200 MG/20 ML AMP IV ONE (12:00)
[2017-01-07] MEDS ORDERED: ONDANSETRON HCL 4 MG/2 ML VIAL IV PUSH ONE (12:00)
[2017-01-07] MEDS ORDERED: GENTAMICIN SULFATE 80 MG/2 ML VIAL ONE (12:21)
[2017-01-07] MEDS ORDERED: FAMOTIDINE 20 MG/2 ML VIAL ONE (13:01)
[2017-01-07] MEDS ORDERED: ACETAMINOPHEN 1000 MG/100 ML VIAL IV ONE (13:01)
--- NOTE | 2017-01-07 13:44 | EKG ---
Date Performed: 01/07/2017 Time Performed: 05:00:18 PTAGE: 66 years EKG: Sinus rhythm rSr'(V1) - probable normal variant Poor R wave progression - probable normal variant Anterolateral S T-T changes are nonspecific Borderline ECG Compared to prior tracing no significant change PREVIOUS TRACING : 11/25/2015 09.22 DOCTOR: Norman Haider Interpretating Date/Time 01/07/2017 13:42:16
[2017-01-07] MEDS ORDERED: SODIUM CHLORIDE 0.9% FLUSH 5 ML FLUSH IVF PRN (15:00)
[2017-01-07] MEDS ORDERED: TRANEXAMIC ACID INJ 800 MG in SODIUM CHLORIDE 0.9% INJ 100 ML IV SCH (15:00)
[2017-01-07] MEDS ORDERED: ACETAMINOPHEN/HYDROcodone 325 MG/7.5 MG TAB PO PRN (15:00)
[2017-01-07] MEDS ORDERED: ZOLPIDEM TARTRATE 5 MG TAB PO PRN (15:00)
[2017-01-07] MEDS: LACTATED RINGER'S 1000 ML INJ 1,000 ML IV SCH ×2 (15:00→15:57)
[2017-01-07] MEDS ORDERED: Post-op Orders (for Pharmacy) MISC XX ONE (15:00)
[2017-01-07] MEDS ORDERED: HYDR-3580 PO (15:09)
--- NOTE | 2017-01-07 15:11 | HHI.FF ---
Face to Face Verification Diagnosis: (1) Right patella fracture Physical Therapy Gait training Knee: Knee fracture, Protocol: Right, Gait training, Full weight bearing Right LE Weight Bearing: WB as tolerated Right LE Range of Motion: No ROM Nursing Nursing: Dressing changes Dressing Changes: Daily dressing change, Coverderm/Primapore Additional Instructions Remove steristrips on postop day 14. I have seen patient Aundrea Baum on 01/07/17. My clinical findings support the need for the requested home health care services because: Ltd mobility - disease progression Limited ability to care for self High risk of falls I certify that my clinical findings support that this patient is homebound because: Post-op weakness Unsteady gait/balance Unsafe to leave home unassisted Alec Dietrich MD (Charles) Jan 07, 2017 15:11
[2017-01-07] MEDS ORDERED: DO NOT ADM ANY ANTICOAGULANT DRUGS PRN (15:30)
--- NOTE | 2017-01-07 16:23 | RADRPT ---
EXAM DATE/TIME: 01/07/2017 15:43 [facility] COMPARISON: KNEE RIGHT COMPLETE (4VWS), January 06, 2017, 14:28. FEMUR RIGHT (AP & LAT/2VWS), January 06, 2017, 14:27. KNEE RIGHT LTD (1 OR 2 VWS), July 24, 2012, 11:46. INDICATIONS : Status post total right knee arthroplasty. MEDICAL HISTORY : None. SURGICAL HISTORY : None. ENCOUNTER: Subsequent ACUITY: 1 day PAIN SCORE: Non-responsive. LOCATION: Right Knee FINDINGS: Two-view examination of the knee postoperative. The tibial and femoral component of the hemiarthropl asty a similar appearance to prior. There is a fragmented appearance to the inferior aspect of the p atella with 3 discrete corticated fragments measuring up to 6 mm in size.. These are adjacent to the inferior aspect of the patella. The superior fragment adjacent to the patella seen on conventional radiographs yesterday has been removed. The suprapatellar soft tissues are normal in thickness. CONCLUSION: No retained metallic object. Salvador Cameron MD on January 07, 2017 at 16:18 Board Certified Radiologist. This report was verified electronically.
[2017-01-07] MEDS: KETOROLAC TROMETHAMINE 30 MG/ML (IVP) VIAL IVP SCH ×2 (16:41→21:08)
[2017-01-07] MEDS: ACETAMINOPHEN/HYDROcodone 325 MG/7.5 MG TAB PO PRN (18:20)
[2017-01-07] MEDS: SODIUM CHLORIDE 0.9% FLUSH 5 ML FLUSH IVF SCH (21:00)
[2017-01-07] MEDS: ASPIRIN EC 81 MG TABEC PO SCH (21:08)
[2017-01-08] VITALS (7 sets, daily range): BP systolic 139–162; BP diastolic 65–76; PULSE 67–84; RESP 16–18; TEMP 96.2–98.5; O2SAT 93–98
[2017-01-08] MEDS: ACETAMINOPHEN/HYDROcodone 325 MG/7.5 MG TAB PO PRN ×5 (00:14→20:43)
[2017-01-08] MEDS: KETOROLAC TROMETHAMINE 30 MG/ML (IVP) VIAL IVP SCH ×4 (02:55→20:42)
[2017-01-08 05:34] LABS: HEMATOCRIT 30.3 % (35.0-46.0); REVIEW FLAG FINAL
[2017-01-08] MEDS: TOLTERODINE TARTRATE 4 MG CAP LA PO SCH (07:06)
[2017-01-08] MEDS: FERROUS SULFATE 325 MG (65 MG ELEMENTAL IRON) TAB PO SCH (07:39)
[2017-01-08] MEDS: ESTRADIOL 1 MG TAB PO SCH (07:39)
[2017-01-08] MEDS: LOSARTAN 50 MG TAB PO SCH (07:39)
[2017-01-08] MEDS: DIGOXIN 0.125 MG TAB PO SCH (07:40)
[2017-01-08] MEDS: ASPIRIN EC 81 MG TABEC PO SCH ×2 (07:40→20:41)
[2017-01-08] MEDS: ONDANSETRON HCL 4 MG/2 ML VIAL IVP PRN ×2 (07:59→14:18)
[2017-01-08] MEDS: SODIUM CHLORIDE 0.9% FLUSH 5 ML FLUSH IVF SCH ×2 (08:02→20:43)
--- NOTE | 2017-01-08 10:23 | HHI.PR ---
Subjective Remarks sitting on the chair with no distress. has some muscle spasm on the right upper chest. no sob. no headache but complaining of mild swelling on the back of the head. d/w the RN. Objective Vitals Vital Signs Date Time Temp Pulse Resp B/P Pulse Ox O2 Delivery O2 Flow Rate FiO2 01/08/17 08:00 96.5 70 17 139/69 93 01/08/17 07:59 98 21 01/08/17 04:00 97.3 67 17 142/65 95 01/08/17 00:00 96.2 69 16 147/70 95 01/07/17 20:40 21 01/07/17 19:00 96.4 68 18 130/63 96 01/07/17 18:08 98 Nasal Cannula 2.00 01/07/17 17:23 96.7 67 16 130/62 100 01/07/17 16:45 97.8 68 12 137/65 98 Nasal Cannula 2 01/07/17 16:30 72 16 127/62 98 Nasal Cannula 2 01/07/17 16:15 65 12 128/60 98 Nasal Cannula 2 01/07/17 16:00 66 12 124/58 98 Nasal Cannula 2 01/07/17 15:45 67 14 126/60 99 Nasal Cannula 3 01/07/17 15:31 97.7 72 12 135/62 98 Nasal Cannula 3 01/07/17 12:00 96.4 71 16 137/63 99 01/07/17 11:16 96.0 67 16 154/72 97 I/O 01/07/17 01/07/17 01/07/17 01/08/17 01/08/17 01/08/17 07:00 15:00 23:00 07:00 15:00 23:00 Intake Total 240 ml 1648 ml 480 ml Output Total 50 ml Balance 240 ml 1598 ml 480 ml Intake Oral 240 ml 480 ml 480 ml IV Total 168 ml Other 1000 ml Output Estimated Blood Loss 50 ml # Voids 3 3 3 2 # Bowel Movements 0 0 0 0 Result Diagram: 01/08/17 0457 01/06/17 1601 Imaging Last Impressions Knee X-Ray 01/07/17 9685 Signed Impressions: Service Date/Time: Saturday, January 07, 2017 15:43 - CONCLUSION: No retained metallic object. Salvador Cameron MD Tibia/Fibula X-Ray 01/06/17 1357 Signed Impressions: Service Date/Time: January 14:30 - CONCLUSION: No acute fracture or joint dislocation. Geoffrey Medina MD Femur X-Ray 01/06/17 1357 Signed Impressions: Service Date/Time: , January 06, 2017 14:27 - CONCLUSION: 1. No acute bony fracture or dislocation of the femur. 2. There appears to be a fracture involving the superior margin of the patella. Geoffrey Medina MD Scapular X-Ray 01/06/17 0000 Signed Impressions: Service Date/Time: , January 06, 2017 14:32 - CONCLUSION: 1. No acute fracture or joint dislocation. 2. Probable calcific tendinitis. Geoffrey Medina MD Chest X-Ray 01/06/17 0000 Signed Impressions: Service Date/Time: January 14:24 - CONCLUSION: No acute cardiopulmonary abnormality is identified. Otis Almanza MD Objective Remarks GENERAL: This is a well-nourished, well-developed patient, in no apparent distress. CARDIOVASCULAR: Regular rate and regular rhythm without murmurs, gallops, or rubs. RESPIRATORY: Clear to auscultation. Breath sounds equal bilaterally. No wheezes , rales, or rhonchi. GASTROINTESTINAL: Abdomen soft, non-tender, nondistended. Normal, active bowel sounds MUSCULOSKELETAL: right knee in stabilizer NEURO: Alert & Oriented x4 to person, place, time, situation. Moves all ext x4 Procedures partial patellectomy Medications and IVs Current Medications Sodium Chloride (NS Flush) 2 ml UNSCH PRN IVF FLUSH AFTER USING IV ACCESS Last administered on 01/07/17 07:49; Start 01/06/17 at 16:15; Stop 01/07/17 at 17:06; Status DC Ondansetron HCl 4 mg 4 mg Q8HR PRN IV PUSH NAUSEA; Start 01/06/17 at 16:45; Stop 01/07/17 at 17:06; Status DC Sodium Chloride (NS 1000 ml Inj) 1,000 ml @ 100 mls/hr Q10H IV Last administered on 01/07/17 03:00; Start 01/06/17 at 16:45; Stop 01/07/17 at 17:10; Status DC Hydromorphone HCl (Dilaudid Pf Inj) 0.5 mg ONCE ONCE IV PUSH Last administered on 01/06/17 17:02; Start 01/06/17 at 16:45; Stop 01/06/17 at 16:46; Status DC Ondansetron HCl (Zofran Inj) 4 mg ONCE ONCE IV PUSH ; Start 01/06/17 at 16:45; Stop 01/06/17 at 16:46; Status DC Acetaminophen/ Hydrocodone Bitart ([place] 5-325 Mg) 1 tab Q4H PRN PO PAIN 1-5; Start 01/06/17 at 17:00; Stop 01/07/17 at 17:09; Status DC Acetaminophen/ Hydrocodone Bitart ([place] 5-325 Mg) 2 tab Q4H PRN PO PAIN 6-10 Last administered on 01/07/17 11:16; Start 01/06/17 at 17:00; Stop 01/07/17 at 17: 09; Status DC Hydromorphone HCl (Dilaudid Pf Inj) 0.5 mg Q4H PRN IV PUSH BREAKTHROUGH PAIN Last administered on 01/07/17 19:11; Start 01/06/17 at 17:00 Digoxin (Lanoxin) 0.125 mg DAILY PO Last administered on 01/08/17 07:40; Start 01/07/17 at 09:00 Diphenhydramine HCl (Benadryl) 25 mg HS PRN PO INSOMNIA; Start 01/06/17 at 17:00 Estradiol (Estradiol) 0.5 mg DAILY PO Last administered on 01/08/17 07:39; Start 01/07/17 at 09:00 Losartan Potassium (Cozaar) 100 mg DAILY PO Last administered on 01/08/17 07:39 ; Start 01/07/17 at 09:00 Ferrous Sulfate (Ferrous Sulfate) 325 mg DAILY PO NS Last administered on 07:39; Start 01/07/17 at 09:00 Tolterodine Tartrate (Detrol La) 4 mg DAILY PO ; Start 01/07/17 at 09:00 Miscellaneous (Pill Splitter) 1 ea UNSCH PRN OTHER SEE LABEL COMMENTS; Start at 18:15 Chlorhexidine Gluconate 1 applic 1 applic ONCE TOPICAL ; Start 01/06/17 at 18:15 ; Stop 01/10/17 at 18:14 Tranexamic Acid 720 mg/Sodium Chloride 107.2 ml @ 200 mls/hr ONCE IV Last administered on 01/07/17 13:00; Start 01/06/17 at 18:15; Stop 01/07/17 at 18:14; Status DC Tranexamic Acid 720 mg/Sodium Chloride 107.2 ml @ 200 mls/hr ONCE IV Last administered on 01/07/17 16:01; Start 01/07/17 at 00:00; Stop 01/08/17 at 00:00; Status DC Bupivacaine Liposome 20 ml/ Sodium Chloride 60 ml @ 120 mls/hr ONCE P-ARTICULR Last administered on 01/07/17 13:49; Start 01/06/17 at 18:15; Stop 01/07/17 at 18:14; Status DC Cefazolin Sodium/ Dextrose 50 ml @ 150 mls/hr DIRECTOR RADIO IV Last administered on 01/07/17 12:40; Start 01/06/17 at 18:15; Stop 01/10/17 at 18:14 Lactated Ringer's 1,000 ml @ 30 mls/hr Q24H PRN IV SEE LABEL COMMENTS; Start at 00:30; Stop 01/10/17 at 00:29 Sodium Chloride (NS 500 ml Inj) 500 ml @ 30 mls/hr [id number] PRN IV SEE LABEL COMMENTS; Start 01/07/17 at 00:30; Stop 01/10/17 at 00:29 Povidone Iodine (Betadine 5% Antisepsis Kit) 1 applic DIRECTOR RADIO PRN EACH NARE SEE LABEL COMMENTS; Start 01/07/17 at 00:30; Stop 01/10/17 at 00:29 Chlorhexidine Gluconate (Chlorhexidine 2% Cloth) 3 pack DIRECTOR RADIO PRN TOPICAL SEE LABEL COMMENTS; Start 01/07/17 at 00:30; Stop 01/10/17 at 00:29 Insulin Human Regular (NovoLIN R INJ) See Protocol Table ... DIRECTOR RADIO PRN SQ SEE PROTOCOL TABLE; Start 01/07/17 at 00:30; Stop 01/10/17 at 00:29 Magnesium Hydroxide (Milk Of Magnesia Liq) 30 ml DAILY PRN PO CONSTIPATION; Start 01/07/17 at 10:30; Stop 01/07/17 at 17:10; Status DC Gentamicin Sulfate (Gentamicin Inj) 240 mg STK-MED ONCE .ROUTE Last administered on 01/07/17 13:05; Start 01/07/17 at 12:21; Stop 01/07/17 at 12:22; Status DC Fentanyl Citrate (fentaNYL INJ) 100 mcg STK-MED ONCE .ROUTE ; Start 01/07/17 at 13:01; Stop 01/07/17 at 13:02; Status DC Famotidine (Pepcid Inj) 20 mg STK-MED ONCE .ROUTE ; Start 01/07/17 at 13:01; Stop 01/07/17 at 13:02; Status DC Acetaminophen 1000 mg 1,000 mg STK-MED ONCE IV ; Start 01/07/17 at 13:01; Stop at 13:02; Status DC Lactated Ringer's (Lr 1000 ml Inj) 1,000 ml @ 80 mls/hr [id number] IV Last administered on 01/07/17 15:57; Start 01/07/17 at 15:00 IV Flush (NS Flush) 2 ml UNSCH PRN IVF FLUSH AFTER USING IV ACCESS; Start at 15:00 IV Flush 2 ml 2 ml BID IVF Last administered on 01/08/17 08:02; Start 01/07/17 at 21:00 Cefazolin Sodium/ Sodium Chloride (Ancef Inj/NS Inj) 100 ml @ 200 mls/hr Q6H IV Last administered on 01/08/17 05:53; Start 01/07/17 at 18:00; Stop 01/08/17 at 06:29; Status DC Miscellaneous Information (Post-op Orders (for Pharmacy)) STAT ONCE XX ; Start 01/07/17 at 15:00; Stop 01/07/17 at 17:05; Status DC Acetaminophen/ Hydrocodone Bitart ([place] 7.5-325 Mg) 1 tab Q4H PRN PO PAIN LESS THAN 5 ON SCALE; Start 01/07/17 at 15:00 Acetaminophen/ Hydrocodone Bitart ([place] 7.5-325 Mg) 2 tab Q4H PRN PO PAIN SCALE 5 TO 10 Last administered on 01/08/17 09:01; Start 01/07/17 at 15:00 Ketorolac Tromethamine 15 mg 15 mg Q6H IVP Last administered on 01/08/17 07:40 ; Start 01/07/17 at 15:00; Stop 01/09/17 at 09:01 Tranexamic Acid/ Sodium Chloride (Cyklokapron Inj/ NS Inj) 108 ml @ 200 mls/hr UNSCH IV ; Start 01/07/17 at 15:00; Stop 01/07/17 at 20:00; Status Cancel Ondansetron HCl (Zofran Inj) 4 mg Q6H PRN IVP NAUSEA OR VOMITING Last administered on 01/08/17 07:59; Start 01/07/17 at 15:00 Docusate Sodium (Colace) 100 mg BID PO ; Start 01/08/17 at 21:00 Zolpidem Tartrate (Ambien) 5 mg HS PRN PO SLEEP; Start 01/07/17 at 15:00 Magnesium Hydroxide (Milk Of Magnesia Liq) 30 ml DAILY PRN PO CONSTIPATION; Start 01/07/17 at 15:00 Aspirin (Ecotrin Ec) 81 mg BID PO Last administered on 01/08/17 07:40; Start at 21:00 Fentanyl Citrate (fentaNYL INJ) 100 mcg STK-MED ONCE .ROUTE ; Start 01/07/17 at 15:45; Stop 01/07/17 at 15:46; Status DC Miscellaneous Information ALL NURSING DEPARTME... UNSCH PRN .XX SEE LABEL COMMENTS; Start 01/07/17 at 15:30; Stop 01/08/17 at 15:29 A/P Assessment and Plan 66-year-old female with past medical history of HTN, A. fib who presented after a ladder fell on her and found have right patellar fracture Patella fracture: Seen on the x-ray. Patient's orthopedic surgeon consulted, s/ p operative repair . continue Pain control . S/P trauma: The patient had a ladder fall on her. will check rib series and CT head- Continue pain medication as above. Atrial fibrillation: Chronic, stable. resume aspirin post-op. Continue digoxin. Hypertension: Currently normotensive. Continue losartan. DVT prophylaxis: Per orthopedics. Discharge Planning possible dc tomorrow if stable- pending the XR studies. Tyshawn Womack MD Jan 08, 2017 10:23
[2017-01-08] MEDS: CYCLOBENZAPRINE HCL 10 MG TAB PO PRN ×2 (11:24→20:42)
[2017-01-08] MEDS: LACTATED RINGER'S 1000 ML INJ 1,000 ML IV SCH (11:28)
--- NOTE | 2017-01-08 11:39 | PD.ORT.PN ---
Subjective Post Op Day #: 1 Subjective Remarks Patient seen for Dr. Dietrich. Patient is status post partial patellectomy yesterday fro christopher-prosthetic patella fracture. Currently sitting on side of bed. Pain not too bad. Patient is planning to go home after discharge but does not want home nurse. Will have home PT. Patient is going to have additional x-rays performed today. Discharge possible today ro tomorrow if medically ready. Objective Vitals Vital Signs Date Time Temp Pulse Resp B/P Pulse Ox O2 Delivery O2 Flow Rate FiO2 01/08/17 08:00 96.5 70 17 139/69 93 01/08/17 07:59 98 21 01/08/17 04:00 97.3 67 17 142/65 95 01/08/17 00:00 96.2 69 16 147/70 95 01/07/17 20:40 21 01/07/17 19:00 96.4 68 18 130/63 96 01/07/17 18:08 98 Nasal Cannula 2.00 01/07/17 17:23 96.7 67 16 130/62 100 01/07/17 16:45 97.8 68 12 137/65 98 Nasal Cannula 2 01/07/17 16:30 72 16 127/62 98 Nasal Cannula 2 01/07/17 16:15 65 12 128/60 98 Nasal Cannula 2 01/07/17 16:00 66 12 124/58 98 Nasal Cannula 2 01/07/17 15:45 67 14 126/60 99 Nasal Cannula 3 01/07/17 15:31 97.7 72 12 135/62 98 Nasal Cannula 3 01/07/17 12:00 96.4 71 16 137/63 99 I/O 01/07/17 01/07/17 01/07/17 01/08/17 01/08/17 01/08/17 07:00 15:00 23:00 07:00 15:00 23:00 Intake Total 240 ml 1648 ml 480 ml Output Total 50 ml Balance 240 ml 1598 ml 480 ml Intake Oral 240 ml 480 ml 480 ml IV Total 168 ml Other 1000 ml Output Estimated Blood Loss 50 ml # Voids 3 3 3 2 # Bowel Movements 0 0 0 0 Result Diagram: 01/08/17 0457 01/06/17 1601 Imaging Last 24 hours Impressions Knee X-Ray 01/07/17 4655 Signed Impressions: Service Date/Time: Saturday, January 07, 2017 15:43 - CONCLUSION: No retained metallic object. Salvador Cameron MD Objective Remarks Dressings intact and patient is in canvas knee splint with cooling tubes. Neurovascular exam distally is intact Assessment & Plan Ortho Post Op Day #: 1 Problem List: (1) Right patella fracture Plan: The right knee has been stabilized with surgery and she is in canvas knee splint. She is okay for discharge from ortho standpoint when medically ready. Hugo Webb MD Jan 08, 2017 11:39
--- NOTE | 2017-01-08 12:15 | RADRPT ---
EXAM DATE/TIME: 01/08/2017 11:48 [facility] COMPARISON: No previous studies available for comparison. INDICATIONS : Pain from blunt trauma from object falling on patient's back. MEDICAL HISTORY : None. SURGICAL HISTORY : Loop recorder. ENCOUNTER: Initial ACUITY: 3 days PAIN SCORE: 5/10 LOCATION: Right posterior ribs. FINDINGS: Multiple views of the right ribs were performed. There is no evidence of displaced fracture. No andrey tructive lesions or areas of periosteal thickening are seen. Expiratory view of the chest is negativ e for pneumothorax. The mediastinal structures are midline. Loop recorder device noted. Cardiomegal y. CONCLUSION: No acute disease. Cardiomegaly. Chris Quigley MD on January 08, 2017 at 12:12 Board Certified Radiologist. This report was verified electronically.
--- NOTE | 2017-01-08 12:38 | RADRPT ---
EXAM DATE/TIME: 01/08/2017 12:06 [facility] COMPARISON: No previous studies available for comparison. INDICATIONS : Nausea following being struck by a falling lower. RADIATION DOSE: 47.82 CTDIvol (mGy) MEDICAL HISTORY : Cardiovascular disease. SURGICAL HISTORY : Appendectomy. Cholecystectomy. ENCOUNTER: Initial ACUITY: 1 day PAIN SCALE: 0/10 LOCATION: Bilateral head TECHNIQUE: Multiple contiguous axial images were obtained of the head. Using automated exposure control and adj ustment of the mA and/or kV according to patient size, radiation dose was kept as low as reasonably a chievable to obtain optimal diagnostic quality images. DICOM format image data is available electro nically for review and comparison. FINDINGS: CEREBRUM: The ventricles are normal for age. No evidence of midline shift, mass lesion, hemorrhage or acute in farction. No extra-axial fluid collections are seen. POSTERIOR FOSSA: The cerebellum and brainstem are intact. The 4th ventricle is midline. The cerebellopontine angle i s unremarkable. EXTRACRANIAL: The visualized portion of the orbits is intact. SKULL: The calvaria is intact. No evidence of skull fracture. CONCLUSION: No acute intracranial disease. Chris Quigley MD on January 08, 2017 at 12:36 Board Certified Radiologist. This report was verified electronically.
[2017-01-08] MEDS: DOCUSATE SODIUM 100 MG CAP PO SCH (20:41)
[2017-01-09] MEDS: ACETAMINOPHEN/HYDROcodone 325 MG/7.5 MG TAB PO PRN ×6 (00:37→23:41)
[2017-01-09 00:54] VITALS: BP 166/73; PULSE 85; RESP 18; TEMP 98.7; O2SAT 96
[2017-01-09] MEDS: KETOROLAC TROMETHAMINE 30 MG/ML (IVP) VIAL IVP SCH ×2 (03:00→09:00)
[2017-01-09 04:08] VITALS: BP 151/71; PULSE 80; RESP 18; TEMP 99.2; O2SAT 96
[2017-01-09] MEDS: LACTATED RINGER'S 1000 ML INJ 1,000 ML IV SCH ×2 (04:30→15:30)
[2017-01-09 05:04] LABS: HEMATOCRIT 29.1 % (35.0-46.0); REVIEW FLAG FINAL
[2017-01-09] MEDS: CYCLOBENZAPRINE HCL 10 MG TAB PO PRN ×3 (05:55→23:40)
[2017-01-09 08:00] VITALS: BP 123/61; PULSE 68; RESP 18; TEMP 97.1; O2SAT 98
[2017-01-09] MEDS: LOSARTAN 50 MG TAB PO SCH (08:58)
[2017-01-09] MEDS: DOCUSATE SODIUM 100 MG CAP PO SCH ×2 (08:58→19:52)
[2017-01-09] MEDS: ESTRADIOL 1 MG TAB PO SCH (08:58)
[2017-01-09] MEDS: DIGOXIN 0.125 MG TAB PO SCH (08:59)
[2017-01-09] MEDS: TOLTERODINE TARTRATE 4 MG CAP LA PO SCH (08:59)
[2017-01-09] MEDS: FERROUS SULFATE 325 MG (65 MG ELEMENTAL IRON) TAB PO SCH (08:59)
[2017-01-09] MEDS: ASPIRIN EC 81 MG TABEC PO SCH ×2 (08:59→19:52)
[2017-01-09] MEDS: SODIUM CHLORIDE 0.9% FLUSH 5 ML FLUSH IVF SCH ×2 (09:00→19:54)
--- NOTE | 2017-01-09 10:21 | HHI.PR ---
Subjective Remarks still complaining of right upper back pain. says that the pain is slightly better with the muscle relaxant. no other complaints. d/w the RN. Objective Vitals Vital Signs Date Time Temp Pulse Resp B/P Pulse Ox O2 Delivery O2 Flow Rate FiO2 01/09/17 08:00 97.1 68 18 123/61 98 01/09/17 04:08 99.2 80 18 151/71 96 01/09/17 00:54 98.7 85 18 166/73 96 01/08/17 20:50 98.5 84 18 162/76 98 01/08/17 16:00 98.1 69 16 151/70 96 01/08/17 12:00 97.2 75 18 145/70 95 I/O 01/08/17 01/08/17 01/08/17 01/09/17 01/09/17 01/09/17 07:00 15:00 23:00 07:00 15:00 23:00 Intake Total 480 ml 960 ml 240 ml 240 ml Balance 480 ml 960 ml 240 ml 240 ml Intake Oral 480 ml 960 ml 240 ml 240 ml # Voids 2 5 1 3 # Bowel Movements 0 1 0 0 Result Diagram: 01/09/17 0424 01/06/17 1601 Imaging Last Impressions Ribs X-Ray 01/08/17 0000 Signed Impressions: Service Date/Time: Sunday, January 08, 2017 11:48 - CONCLUSION: No acute disease. Cardiomegaly. Chris Quigley MD Head CT 01/08/17 0000 Signed Impressions: Service Date/Time: Sunday, January 08, 2017 12:06 - CONCLUSION: No acute intracranial disease. Chris Quigley MD Knee X-Ray 01/07/17 1455 Signed Impressions: Service Date/Time: Saturday, January 07, 2017 15:43 - CONCLUSION: No retained metallic object. Salvador Cameron MD Tibia/Fibula X-Ray 01/06/17 1357 Signed Impressions: Service Date/Time: January 14:30 - CONCLUSION: No acute fracture or joint dislocation. Geoffrey Medina MD Femur X-Ray 01/06/17 9571 Signed Impressions: Service Date/Time: January 14:27 - CONCLUSION: 1. No acute bony fracture or dislocation of the femur. 2. There appears to be a fracture involving the superior margin of the patella. Geoffrey Medina MD Scapular X-Ray 01/06/17 0000 Signed Impressions: Service Date/Time: January 14:32 - CONCLUSION: 1. No acute fracture or joint dislocation. 2. Probable calcific tendinitis. Geoffrey Medina MD Chest X-Ray 01/06/17 0000 Signed Impressions: Service Date/Time: January 14:24 - CONCLUSION: No acute cardiopulmonary abnormality is identified. Otis Almanza MD Objective Remarks GENERAL: This is a well-nourished, well-developed patient, in no apparent distress. CARDIOVASCULAR: Regular rate and regular rhythm without murmurs, gallops, or rubs. RESPIRATORY: Clear to auscultation. Breath sounds equal bilaterally. No wheezes , rales, or rhonchi. GASTROINTESTINAL: Abdomen soft, non-tender, nondistended. Normal, active bowel sounds MUSCULOSKELETAL: right knee in stabilizer NEURO: Alert & Oriented x4 to person, place, time, situation. Moves all ext x4 Procedures partial patellectomy Medications and IVs Current Medications Sodium Chloride (NS Flush) 2 ml UNSCH PRN IVF FLUSH AFTER USING IV ACCESS Last administered on 01/07/17 07:49; Start 01/06/17 at 16:15; Stop 01/07/17 at 17:06; Status DC Ondansetron HCl 4 mg 4 mg Q8HR PRN IV PUSH NAUSEA; Start 01/06/17 at 16:45; Stop 01/07/17 at 17:06; Status DC Sodium Chloride (NS 1000 ml Inj) 1,000 ml @ 100 mls/hr Q10H IV Last administered on 01/07/17 03:00; Start 01/06/17 at 16:45; Stop 01/07/17 at 17:10; Status DC Hydromorphone HCl (Dilaudid Pf Inj) 0.5 mg ONCE ONCE IV PUSH Last administered on 01/06/17 17:02; Start 01/06/17 at 16:45; Stop 01/06/17 at 16:46; Status DC Ondansetron HCl (Zofran Inj) 4 mg ONCE ONCE IV PUSH ; Start 01/06/17 at 16:45; Stop 01/06/17 at 16:46; Status DC Acetaminophen/ Hydrocodone Bitart (Derby 5-325 Mg) 1 tab Q4H PRN PO PAIN 1-5; Start 01/06/17 at 17:00; Stop 01/07/17 at 17:09; Status DC Acetaminophen/ Hydrocodone Bitart ([place] 5-325 Mg) 2 tab Q4H PRN PO PAIN 6-10 Last administered on 01/07/17 11:16; Start 01/06/17 at 17:00; Stop 01/07/17 at 17: 09; Status DC Hydromorphone HCl (Dilaudid Pf Inj) 0.5 mg Q4H PRN IV PUSH BREAKTHROUGH PAIN Last administered on 01/07/17 19:11; Start 01/06/17 at 17:00 Digoxin (Lanoxin) 0.125 mg DAILY PO Last administered on 01/09/17 08:59; Start 01/07/17 at 09:00 Diphenhydramine HCl (Benadryl) 25 mg HS PRN PO INSOMNIA; Start 01/06/17 at 17:00 Estradiol (Estradiol) 0.5 mg DAILY PO Last administered on 01/09/17 08:58; Start 01/07/17 at 09:00 Losartan Potassium (Cozaar) 100 mg DAILY PO Last administered on 01/09/17 08:58 ; Start 01/07/17 at 09:00 Ferrous Sulfate (Ferrous Sulfate) 325 mg DAILY PO NS Last administered on 08:59; Start 01/07/17 at 09:00 Tolterodine Tartrate (Detrol La) 4 mg DAILY PO ; Start 01/07/17 at 09:00 Miscellaneous (Pill Splitter) 1 ea UNSCH PRN OTHER SEE LABEL COMMENTS; Start at 18:15 Chlorhexidine Gluconate 1 applic 1 applic ONCE TOPICAL ; Start 01/06/17 at 18:15 ; Stop 01/10/17 at 18:14 Tranexamic Acid 720 mg/Sodium Chloride 107.2 ml @ 200 mls/hr ONCE IV Last administered on 01/07/17 13:00; Start 01/06/17 at 18:15; Stop 01/07/17 at 18:14; Status DC Tranexamic Acid 720 mg/Sodium Chloride 107.2 ml @ 200 mls/hr ONCE IV Last administered on 01/07/17 16:01; Start 01/07/17 at 00:00; Stop 01/08/17 at 00:00; Status DC Bupivacaine Liposome 20 ml/ Sodium Chloride 60 ml @ 120 mls/hr ONCE P-ARTICULR Last administered on 01/07/17 13:49; Start 01/06/17 at 18:15; Stop 01/07/17 at 18:14; Status DC Cefazolin Sodium/ Dextrose 50 ml @ 150 mls/hr [employer]IST IV Last administered on 01/07/17 12:40; Start 01/06/17 at 18:15; Stop 01/10/17 at 18:14 Lactated Ringer's 1,000 ml @ 30 mls/hr Q24H PRN IV SEE LABEL COMMENTS; Start at 00:30; Stop 01/10/17 at 00:29 Sodium Chloride (NS 500 ml Inj) 500 ml @ 30 mls/hr [id number] PRN IV SEE LABEL COMMENTS; Start 01/07/17 at 00:30; Stop 01/10/17 at 00:29 Povidone Iodine (Betadine 5% Antisepsis Kit) 1 applic [employer]IST PRN EACH NARE SEE LABEL COMMENTS; Start 01/07/17 at 00:30; Stop 01/10/17 at 00:29 Chlorhexidine Gluconate (Chlorhexidine 2% Cloth) 3 pack [employer]IST PRN TOPICAL SEE LABEL COMMENTS; Start 01/07/17 at 00:30; Stop 01/10/17 at 00:29 Insulin Human Regular (NovoLIN R INJ) See Protocol Table ... [employer]IST PRN SQ SEE PROTOCOL TABLE; Start 01/07/17 at 00:30; Stop 01/10/17 at 00:29 Magnesium Hydroxide (Milk Of Magnesia Liq) 30 ml DAILY PRN PO CONSTIPATION; Start 01/07/17 at 10:30; Stop 01/07/17 at 17:10; Status DC Gentamicin Sulfate (Gentamicin Inj) 240 mg STK-MED ONCE .ROUTE Last administered on 01/07/17 13:05; Start 01/07/17 at 12:21; Stop 01/07/17 at 12:22; Status DC Fentanyl Citrate (fentaNYL INJ) 100 mcg STK-MED ONCE .ROUTE ; Start 01/07/17 at 13:01; Stop 01/07/17 at 13:02; Status DC Famotidine (Pepcid Inj) 20 mg STK-MED ONCE .ROUTE ; Start 01/07/17 at 13:01; Stop 01/07/17 at 13:02; Status DC Acetaminophen 1000 mg 1,000 mg STK-MED ONCE IV ; Start 01/07/17 at 13:01; Stop at 13:02; Status DC Lactated Ringer's (Lr 1000 ml Inj) 1,000 ml @ 80 mls/hr [id number] IV Last administered on 01/07/17 15:57; Start 01/07/17 at 15:00 IV Flush (NS Flush) 2 ml UNSCH PRN IVF FLUSH AFTER USING IV ACCESS; Start at 15:00 IV Flush 2 ml 2 ml BID IVF Last administered on 01/08/17 20:43; Start 01/07/17 at 21:00 Cefazolin Sodium/ Sodium Chloride (Ancef Inj/NS Inj) 100 ml @ 200 mls/hr Q6H IV Last administered on 01/08/17 05:53; Start 01/07/17 at 18:00; Stop 01/08/17 at 06:29; Status DC Miscellaneous Information (Post-op Orders (for Pharmacy)) STAT ONCE XX ; Start 01/07/17 at 15:00; Stop 01/07/17 at 17:05; Status DC Acetaminophen/ Hydrocodone Bitart ([place] 7.5-325 Mg) 1 tab Q4H PRN PO PAIN LESS THAN 5 ON SCALE; Start 01/07/17 at 15:00 Acetaminophen/ Hydrocodone Bitart ([place] 7.5-325 Mg) 2 tab Q4H PRN PO PAIN SCALE 5 TO 10 Last administered on 01/09/17 05:55; Start 01/07/17 at 15:00 Ketorolac Tromethamine 15 mg 15 mg Q6H IVP Last administered on 01/08/17 20:42 ; Start 01/07/17 at 15:00; Stop 01/09/17 at 09:01; Status DC Tranexamic Acid/ Sodium Chloride (Cyklokapron Inj/ NS Inj) 108 ml @ 200 mls/hr UNSCH IV ; Start 01/07/17 at 15:00; Stop 01/07/17 at 20:00; Status Cancel Ondansetron HCl (Zofran Inj) 4 mg Q6H PRN IVP NAUSEA OR VOMITING Last administered on 01/08/17 14:18; Start 01/07/17 at 15:00 Docusate Sodium (Colace) 100 mg BID PO Last administered on 01/09/17 08:58; Start 01/08/17 at 21:00 Zolpidem Tartrate (Ambien) 5 mg HS PRN PO SLEEP; Start 01/07/17 at 15:00 Magnesium Hydroxide (Milk Of Magnjaylen Liq) 30 ml DAILY PRN PO CONSTIPATION; Start 01/07/17 at 15:00 Aspirin (Ecotrin Ec) 81 mg BID PO Last administered on 01/09/17 08:59; Start at 21:00 Fentanyl Citrate (fentaNYL INJ) 100 mcg STK-MED ONCE .ROUTE ; Start 01/07/17 at 15:45; Stop 01/07/17 at 15:46; Status DC Miscellaneous Information ALL NURSING DEPARTME... UNSCH PRN .XX SEE LABEL COMMENTS; Start 01/07/17 at 15:30; Stop 01/08/17 at 15:29; Status DC Cyclobenzaprine HCl (Flexeril) 5 mg Q8HR PRN PO MUSCLE SPASM Last administered on 01/09/17 05:55; Start 01/08/17 at 10:30 A/P Assessment and Plan 66-year-old female with past medical history of HTN, A. fib who presented after a ladder fell on her and found have right patellar fracture Patella fracture: Seen on the x-ray. Patient's orthopedic surgeon consulted, s/ p operative repair . continue Pain control . cleared by ortho for discharge. S/P trauma: The patient had a ladder fall on her. rib series negative- however the patient is still complaining of right upper back pain- will do a CT chest. Atrial fibrillation: Chronic, stable. resume aspirin post-op. Continue digoxin. Hypertension: Currently normotensive. Continue losartan. DVT prophylaxis: Per orthopedics. Discharge Planning possible dc tomorrow if pain is better controlled- pending the CT chest. Tyshawn Womack MD Jan 09, 2017 10:21
--- NOTE | 2017-01-09 11:24 | PD.ORT.PN ---
Subjective Post Op Day #: 2 Subjective Remarks Patient seen for Dr. Dietrich. Patient is status post right partial patellectomy for a christopher-prosthetic patella fracture. Currently in bed. She feels that her knee is doing well. She is having right posterior rib pain and she reports that she feels something moving. She reportedly had CT head yesterday which was negative and rib films which did not demonstrate a fracture. CT chest is reportedly scheduled for today. Range of Motion Patient is canvas knee splint- not tested Objective Vitals Vital Signs Date Time Temp Pulse Resp B/P Pulse Ox O2 Delivery O2 Flow Rate FiO2 01/09/17 08:00 97.1 68 18 123/61 98 01/09/17 04:08 99.2 80 18 151/71 96 01/09/17 00:54 98.7 85 18 166/73 96 01/08/17 20:50 98.5 84 18 162/76 98 01/08/17 16:00 98.1 69 16 151/70 96 01/08/17 12:00 97.2 75 18 145/70 95 I/O 01/08/17 01/08/17 01/08/17 01/09/17 01/09/17 01/09/17 07:00 15:00 23:00 07:00 15:00 23:00 Intake Total 480 ml 960 ml 240 ml 240 ml Balance 480 ml 960 ml 240 ml 240 ml Intake Oral 480 ml 960 ml 240 ml 240 ml # Voids 2 5 1 3 # Bowel Movements 0 1 0 0 Result Diagram: 01/09/17 0424 01/06/17 1601 Imaging Last 24 hours Impressions Knee X-Ray 01/07/17 1455 Signed Impressions: Service Date/Time: Saturday, January 07, 2017 15:43 - CONCLUSION: No retained metallic object. Salvador Cameron MD Objective Remarks Dressings intact and patient is in canvas knee splint. Dressing changed earlier today and reportedly the incision looks good. No calf swelling or tenderness. Neurovascular exam distally is intact Assessment & Plan Ortho Post Op Day #: 2 Problem List: (1) Right patella fracture Plan: The right knee has been stabilized with surgery and she is in canvas knee splint. She is okay for discharge from ortho standpoint when medically ready. CT pending. Dr. Dietrich can see her tomorrow. Hugo Webb MD Jan 09, 2017 11:24
[2017-01-09 12:00] VITALS: BP 145/68; PULSE 69; RESP 18; TEMP 97.2; O2SAT 98
[2017-01-09 16:00] VITALS: BP 152/69; PULSE 72; RESP 18; TEMP 98.2; O2SAT 99
[2017-01-09 20:20] VITALS: BP 152/75; PULSE 73; RESP 18; TEMP 98.2; O2SAT 98
--- NOTE | 2017-01-09 22:30 | RADRPT ---
EXAM DATE/TIME: 01/09/2017 22:07 [facility] COMPARISON: RIBS RIGHT(W PA CXR MIN 3VWS), January 08, 2017, 11:48. INDICATIONS : Right upper back pain following trauma. RADIATION DOSE: 5.12 CTDIvol (mGy) MEDICAL HISTORY : Cardiovascular disease. Hypertension. SURGICAL HISTORY : Appendectomy. Hysterectomy. ENCOUNTER: Subsequent ACUITY: 2 days PAIN SCALE: 8/10 LOCATION: chest TECHNIQUE: Volumetric scanning of the chest was performed. Using automated exposure control and adjustment of t he mA and/or kV according to patient size, radiation dose was kept as low as reasonably achievable to obtain optimal diagnostic quality images. DICOM format image data is available electronically for r eview and comparison. FINDINGS: LUNGS: There is no consolidation or pneumothorax. No concerning pulmonary nodule is visualized. PLEURAE: There is a small right pleural effusion. MEDIASTINUM: The heart and great vessels demonstrate no acute abnormality. There is no mediastinal or hilar lymph adenopathy. AXILLAE: Within normal limits. No lymphadenopathy. MUSCULOSKELETAL: There are nondisplaced fractures of the posterior right ninth and 10th ribs. MISCELLANEOUS: The visualized upper abdominal organs demonstrate no acute abnormality. Status post cholecystectomy. CONCLUSION: 1. Nondisplaced fractures of the right posterior ninth and 10th ribs. 2. Small right pleural effusion. Rahul Cruz MD on January 09, 2017 at 22:25 Board Certified Radiologist. This report was verified electronically.
[2017-01-10 00:06] VITALS: BP 152/75; PULSE 75; RESP 18; TEMP 99.5; O2SAT 96
[2017-01-10] MEDS: LACTATED RINGER'S 1000 ML INJ 1,000 ML IV SCH (05:30)
[2017-01-10] MEDS: ACETAMINOPHEN/HYDROcodone 325 MG/7.5 MG TAB PO PRN (05:33)
--- NOTE | 2017-01-10 07:54 | HHI.DCPOC ---
Discharge Care Plan Diagnosis: (1) Right patella fracture Your Health Problems Are: Difficulty with ADL Goals to Promote Your Health * To prevent worsening of your condition and complications * To maintain your health at the optimal level Directions to Meet Your Goals Take your medications as prescribed Follow your dietary instruction Follow activity as directed Keep your appointments as scheduled Take your immunizations and boosters as scheduled If your symptoms worsen call your PCP, if no PCP go to Urgent Care Center or Emergency Room Smoking is Dangerous to Your Health. Avoid second hand smoke Call the 24-hour hour crisis hotline for domestic abuse at Tyshawn Womack MD Jan 10, 2017 07:54
--- NOTE | 2017-01-10 07:54 | HHI.PR ---
Subjective Remarks resting comfortably with no distress. pain is fairly controlled. no new complaints. d/w the RN. Objective Vitals Vital Signs Date Time Temp Pulse Resp B/P Pulse Ox O2 Delivery O2 Flow Rate FiO2 01/10/17 00:06 99.5 75 18 152/75 96 01/09/17 20:20 98.2 73 18 152/75 98 01/09/17 16:00 98.2 72 18 152/69 99 01/09/17 12:00 97.2 69 18 145/68 98 01/09/17 08:00 97.1 68 18 123/61 98 I/O 01/09/17 01/09/17 01/09/17 01/10/17 01/10/17 01/10/17 07:00 15:00 23:00 07:00 15:00 23:00 Intake Total 240 ml 960 ml 240 ml 240 ml Balance 240 ml 960 ml 240 ml 240 ml Intake Oral 240 ml 960 ml 240 ml 240 ml # Voids 3 5 2 2 # Bowel Movements 0 0 0 0 Result Diagram: 01/09/17 0424 01/06/17 1601 Imaging Last Impressions Chest CT 01/09/17 0000 Signed Impressions: Service Date/Time: Monday, January 09, 2017 22:07 - CONCLUSION: 1. Nondisplaced fractures of the right posterior ninth and 10th ribs. 2. Small right pleural effusion. Rahul Cruz MD Ribs X-Ray 01/08/17 0000 Signed Impressions: Service Date/Time: Sunday, January 08, 2017 11:48 - CONCLUSION: No acute disease. Cardiomegaly. Chris Quigley MD Head CT 01/08/17 0000 Signed Impressions: Service Date/Time: Sunday, January 08, 2017 12:06 - CONCLUSION: No acute intracranial disease. Chris Quigley MD Knee X-Ray 01/07/17 1455 Signed Impressions: Service Date/Time: Saturday, January 07, 2017 15:43 - CONCLUSION: No retained metallic object. Salvador Cameron MD Tibia/Fibula X-Ray 01/06/17 1357 Signed Impressions: Service Date/Time: January 14:30 - CONCLUSION: No acute fracture or joint dislocation. Geoffrey Medina MD Femur X-Ray 01/06/17 1357 Signed Impressions: Service Date/Time: January 14:27 - CONCLUSION: 1. No acute bony fracture or dislocation of the femur. 2. There appears to be a fracture involving the superior margin of the patella. Geoffrey Medina MD Scapular X-Ray 01/06/17 0000 Signed Impressions: Service Date/Time: January 14:32 - CONCLUSION: 1. No acute fracture or joint dislocation. 2. Probable calcific tendinitis. Geoffrey Medina MD Chest X-Ray 01/06/17 0000 Signed Impressions: Service Date/Time: , January 06, 2017 14:24 - CONCLUSION: No acute cardiopulmonary abnormality is identified. Otis Almanza MD Objective Remarks GENERAL: This is a well-nourished, well-developed patient, in no apparent distress. CARDIOVASCULAR: Regular rate and regular rhythm without murmurs, gallops, or rubs. RESPIRATORY: Clear to auscultation. Breath sounds equal bilaterally. No wheezes , rales, or rhonchi. GASTROINTESTINAL: Abdomen soft, non-tender, nondistended. Normal, active bowel sounds MUSCULOSKELETAL: right knee in stabilizer NEURO: Alert & Oriented x4 to person, place, time, situation. Moves all ext x4 Procedures partial patellectomy Medications and IVs Current Medications Sodium Chloride (NS Flush) 2 ml UNSCH PRN IVF FLUSH AFTER USING IV ACCESS Last administered on 01/07/17 07:49; Start 01/06/17 at 16:15; Stop 01/07/17 at 17:06; Status DC Ondansetron HCl 4 mg 4 mg Q8HR PRN IV PUSH NAUSEA; Start 01/06/17 at 16:45; Stop 01/07/17 at 17:06; Status DC Sodium Chloride (NS 1000 ml Inj) 1,000 ml @ 100 mls/hr Q10H IV Last administered on 01/07/17 03:00; Start 01/06/17 at 16:45; Stop 01/07/17 at 17:10; Status DC Hydromorphone HCl (Dilaudid Pf Inj) 0.5 mg ONCE ONCE IV PUSH Last administered on 7/6/17at 17:02; Start 01/06/17 at 16:45; Stop 01/06/17 at 16:46; Status DC Ondansetron HCl (Zofran Inj) 4 mg ONCE ONCE IV PUSH ; Start 01/06/17 at 16:45; Stop 01/06/17 at 16:46; Status DC Acetaminophen/ Hydrocodone Bitart ([place] 5-325 Mg) 1 tab Q4H PRN PO PAIN 1-5; Start 01/06/17 at 17:00; Stop 01/07/17 at 17:09; Status DC Acetaminophen/ Hydrocodone Bitart ([place] 5-325 Mg) 2 tab Q4H PRN PO PAIN 6-10 Last administered on 01/07/17 11:16; Start 01/06/17 at 17:00; Stop 01/07/17 at 17: 09; Status DC Hydromorphone HCl (Dilaudid Pf Inj) 0.5 mg Q4H PRN IV PUSH BREAKTHROUGH PAIN Last administered on 01/07/17 19:11; Start 01/06/17 at 17:00 Digoxin (Lanoxin) 0.125 mg DAILY PO Last administered on 01/09/17 08:59; Start 01/07/17 at 09:00 Diphenhydramine HCl (Benadryl) 25 mg HS PRN PO INSOMNIA; Start 01/06/17 at 17:00 Estradiol (Estradiol) 0.5 mg DAILY PO Last administered on 01/09/17 08:58; Start 01/07/17 at 09:00 Losartan Potassium (Cozaar) 100 mg DAILY PO Last administered on 01/09/17 08:58 ; Start 01/07/17 at 09:00 Ferrous Sulfate (Ferrous Sulfate) 325 mg DAILY PO NS Last administered on 08:59; Start 01/07/17 at 09:00 Tolterodine Tartrate (Detrol La) 4 mg DAILY PO ; Start 01/07/17 at 09:00 Miscellaneous (Pill Splitter) 1 ea UNSCH PRN OTHER SEE LABEL COMMENTS; Start at 18:15 Chlorhexidine Gluconate 1 applic 1 applic ONCE TOPICAL ; Start 01/06/17 at 18:15 ; Stop 01/10/17 at 18:14 Tranexamic Acid 720 mg/Sodium Chloride 107.2 ml @ 200 mls/hr ONCE IV Last administered on 01/07/17 13:00; Start 01/06/17 at 18:15; Stop 01/07/17 at 18:14; Status DC Tranexamic Acid 720 mg/Sodium Chloride 107.2 ml @ 200 mls/hr ONCE IV Last administered on 01/07/17 16:01; Start 01/07/17 at 00:00; Stop 01/08/17 at 00:00; Status DC Bupivacaine Liposome 20 ml/ Sodium Chloride 60 ml @ 120 mls/hr ONCE P-ARTICULR Last administered on 01/07/17 13:49; Start 01/06/17 at 18:15; Stop 01/07/17 at 18:14; Status DC Cefazolin Sodium/ Dextrose 50 ml @ 150 mls/hr EMBRYOLOGY TEACHER IV Last administered on 01/07/17 12:40; Start 01/06/17 at 18:15; Stop 01/10/17 at 18:14 Lactated Ringer's 1,000 ml @ 30 mls/hr Q24H PRN IV SEE LABEL COMMENTS; Start at 00:30; Stop 01/10/17 at 00:29; Status DC Sodium Chloride (NS 500 ml Inj) 500 ml @ 30 mls/hr [id number] PRN IV SEE LABEL COMMENTS; Start 01/07/17 at 00:30; Stop 01/10/17 at 00:29; Status DC Povidone Iodine (Betadine 5% Antisepsis Kit) 1 applic EMBRYOLOGY TEACHER PRN EACH NARE SEE LABEL COMMENTS; Start 01/07/17 at 00:30; Stop 01/10/17 at 00:29; Status DC Chlorhexidine Gluconate (Chlorhexidine 2% Cloth) 3 pack EMBRYOLOGY TEACHER PRN TOPICAL SEE LABEL COMMENTS; Start 01/07/17 at 00:30; Stop 01/10/17 at 00:29; Status DC Insulin Human Regular (NovoLIN R INJ) See Protocol Table ... EMBRYOLOGY TEACHER PRN SQ SEE PROTOCOL TABLE; Start 01/07/17 at 00:30; Stop 01/10/17 at 00:29; Status DC Magnesium Hydroxide (Milk Of Magnesia Liq) 30 ml DAILY PRN PO CONSTIPATION; Start 01/07/17 at 10:30; Stop 01/07/17 at 17:10; Status DC Gentamicin Sulfate (Gentamicin Inj) 240 mg STK-MED ONCE .ROUTE Last administered on 01/07/17 13:05; Start 01/07/17 at 12:21; Stop 01/07/17 at 12:22; Status DC Fentanyl Citrate (fentaNYL INJ) 100 mcg STK-MED ONCE .ROUTE ; Start 01/07/17 at 13:01; Stop 01/07/17 at 13:02; Status DC Famotidine (Pepcid Inj) 20 mg STK-MED ONCE .ROUTE ; Start 01/07/17 at 13:01; Stop 01/07/17 at 13:02; Status DC Acetaminophen 1000 mg 1,000 mg STK-MED ONCE IV ; Start 01/07/17 at 13:01; Stop at 13:02; Status DC Lactated Ringer's (Lr 1000 ml Inj) 1,000 ml @ 80 mls/hr [id number] IV Last administered on 01/07/17 15:57; Start 01/07/17 at 15:00 IV Flush (NS Flush) 2 ml UNSCH PRN IVF FLUSH AFTER USING IV ACCESS; Start at 15:00 IV Flush 2 ml 2 ml BID IVF Last administered on 01/08/17 20:43; Start 01/07/17 at 21:00 Cefazolin Sodium/ Sodium Chloride (Ancef Inj/NS Inj) 100 ml @ 200 mls/hr Q6H IV Last administered on 01/08/17 05:53; Start 01/07/17 at 18:00; Stop 01/08/17 at 06:29; Status DC Miscellaneous Information (Post-op Orders (for Pharmacy)) STAT ONCE XX ; Start 01/07/17 at 15:00; Stop 01/07/17 at 17:05; Status DC Acetaminophen/ Hydrocodone Bitart ([place] 7.5-325 Mg) 1 tab Q4H PRN PO PAIN LESS THAN 5 ON SCALE; Start 01/07/17 at 15:00 Acetaminophen/ Hydrocodone Bitart ([place] 7.5-325 Mg) 2 tab Q4H PRN PO PAIN SCALE 5 TO 10 Last administered on 01/10/17 05:33; Start 01/07/17 at 15:00 Ketorolac Tromethamine 15 mg 15 mg Q6H IVP Last administered on 01/08/17 20:42 ; Start 01/07/17 at 15:00; Stop 01/09/17 at 09:01; Status DC Tranexamic Acid/ Sodium Chloride (Cyklokapron Inj/ NS Inj) 108 ml @ 200 mls/hr UNSCH IV ; Start 01/07/17 at 15:00; Stop 01/07/17 at 20:00; Status Cancel Ondansetron HCl (Zofran Inj) 4 mg Q6H PRN IVP NAUSEA OR VOMITING Last administered on 01/08/17 14:18; Start 01/07/17 at 15:00 Docusate Sodium (Colace) 100 mg BID PO Last administered on 01/09/17 19:52; Start 01/08/17 at 21:00 Zolpidem Tartrate (Ambien) 5 mg HS PRN PO SLEEP; Start 01/07/17 at 15:00 Magnesium Hydroxide (Milk Of Magnesia Liq) 30 ml DAILY PRN PO CONSTIPATION; Start 01/07/17 at 15:00 Aspirin (Ecotrin Ec) 81 mg BID PO Last administered on 01/09/17 19:52; Start at 21:00 Fentanyl Citrate (fentaNYL INJ) 100 mcg STK-MED ONCE .ROUTE ; Start 01/07/17 at 15:45; Stop 01/07/17 at 15:46; Status DC Miscellaneous Information ALL NURSING DEPARTME... UNSCH PRN .XX SEE LABEL COMMENTS; Start 01/07/17 at 15:30; Stop 01/08/17 at 15:29; Status DC Cyclobenzaprine HCl (Flexeril) 5 mg Q8HR PRN PO MUSCLE SPASM Last administered on 01/09/17 23:40; Start 01/08/17 at 10:30 A/P Assessment and Plan 66-year-old female with past medical history of HTN, A. fib who presented after a ladder fell on her and found have right patellar fracture Fall with : Patella fracture: Patient's orthopedic surgeon consulted, s/p operative repair . continue Pain control . cleared by ortho for discharge. posterior ninth/tenth non-displaced rib fractures; continue with pain control. Atrial fibrillation: Chronic, stable. resume aspirin post-op. Continue digoxin. Hypertension: Currently normotensive. Continue losartan. DVT prophylaxis: Per orthopedics. Discharge Planning dc home today. see med list. f/u; pcp and ortho. d/w the patient and RN. Tyshawn Womack MD Jan 10, 2017 07:54
[2017-01-10] MEDS: CYCLOBENZAPRINE HCL 10 MG TAB PO PRN (07:55)
[2017-01-10] MEDS: ASPIRIN EC 81 MG TABEC PO SCH (07:55)
[2017-01-10] MEDS: LOSARTAN 50 MG TAB PO SCH (07:55)
[2017-01-10] MEDS: TOLTERODINE TARTRATE 4 MG CAP LA PO SCH (07:55)
--- NOTE | 2017-01-10 07:55 | HHI.DS ---
Discharge Summary Admission Date Jan 06, 2017 at 16:34 Discharge Date: Jan 10, 2017 Admitting Diagnosis R Patella Fx; L Forearm Contusion/Abrasion (1) Status post total right knee replacement ICD Code: Z96.651 Diagnosis: Secondary (2) Right patella fracture ICD Code: S82.001A Diagnosis: Principal (3) Rib fractures ICD Code: S22.39XA Diagnosis: Principal Procedures partial patellectomy Brief History - From Admission Written by Alfredo Avalos, acting as scribe for Dr. Womack on 01/06/17 at 16:49. 66-year-old female with past medical history of HTN, A. fib who presented after a ladder fell on her. Patient states she was holding a ladder in the person of the top ladder fell off and the ladder fell on her. She states the latter hit her in the right knee, left arm, mild, shoulder. She was found to have right patellar fracture in the ED and her orthopedic surgeon, Dr. Dietrich, was contacted and plans on operative repair in the morning. Right knee pain 3/10. The patient states that she twisted her that whenever she fell and has some muscle spasms in her mid back. Back pain 7/10. She does have lacerations on her left arm. Both in the back in the knee, she denies any other pain. She doesn't recall any head injury, loss of consciousness, or headache. CBC/BMP: 01/09/17 0424 01/06/17 1601 Significant Findings Laboratory Tests Test 01/08/17 01/09/17 04:57 04:24 Hemoglobin 9.9 GM/DL 10.4 GM/DL (11.6-15.3) (11.6-15.3) Hematocrit 30.3 % 29.1 % (35.0-46.0) (35.0-46.0) Imaging Last Impressions Chest CT 01/09/17 0000 Signed Impressions: Service Date/Time: Monday, January 09, 2017 22:07 - CONCLUSION: 1. Nondisplaced fractures of the right posterior ninth and 10th ribs. 2. Small right pleural effusion. Rahul Cruz MD Ribs X-Ray 01/08/17 0000 Signed Impressions: Service Date/Time: Sunday, January 08, 2017 11:48 - CONCLUSION: No acute disease. Cardiomegaly. Chris Quigley MD Head CT 01/08/17 0000 Signed Impressions: Service Date/Time: Sunday, January 08, 2017 12:06 - CONCLUSION: No acute intracranial disease. Chris Quigley MD Knee X-Ray 01/07/17 1455 Signed Impressions: Service Date/Time: Saturday, January 07, 2017 15:43 - CONCLUSION: No retained metallic object. Salvador Cameron MD Tibia/Fibula X-Ray 01/06/17 1357 Signed Impressions: Service Date/Time: January 14:30 - CONCLUSION: No acute fracture or joint dislocation. Geoffrey Medina MD Femur X-Ray 01/06/17 1357 Signed Impressions: Service Date/Time: January 14:27 - CONCLUSION: 1. No acute bony fracture or dislocation of the femur. 2. There appears to be a fracture involving the superior margin of the patella. Geoffrey Medina MD Scapular X-Ray 01/06/17 0000 Signed Impressions: Service Date/Time: January 14:32 - CONCLUSION: 1. No acute fracture or joint dislocation. 2. Probable calcific tendinitis. Geoffrey Medina MD Chest X-Ray 01/06/17 0000 Signed Impressions: Service Date/Time: January 14:24 - CONCLUSION: No acute cardiopulmonary abnormality is identified. Otis Almanza MD PE at Discharge GENERAL: This is a well-nourished, well-developed patient, in no apparent distress. CARDIOVASCULAR: Regular rate and regular rhythm without murmurs, gallops, or rubs. RESPIRATORY: Clear to auscultation. Breath sounds equal bilaterally. No wheezes , rales, or rhonchi. GASTROINTESTINAL: Abdomen soft, non-tender, nondistended. Normal, active bowel sounds MUSCULOSKELETAL: right knee in stabilizer NEURO: Alert & Oriented x4 to person, place, time, situation. Moves all ext x4 Hospital Course Fall with : Patella fracture: Patient's orthopedic surgeon consulted, s/p operative repair . continue Pain control . cleared by ortho for discharge. posterior ninth/tenth non-displaced rib fractures; continue with pain control. Atrial fibrillation: Chronic, stable. resume aspirin post-op. Continue digoxin. Hypertension: Currently normotensive. Continue losartan. DVT prophylaxis: Per orthopedics. Pt Condition on Discharge: Good Discharge Disposition: Disch w/ Home Health Serv Discharge Time: <= 30 minutes Discharge Instructions DIET: Follow Instructions for: As Tolerated, No Restrictions Activities you can perform: Full Weight Bearing, Shower Only-No Bath Activities to Avoid: Lifting/Bending, Strenuous Activity, Bathing, Driving Other Activity Instructions: Keep CKS on right knee.. Do not bend right knee Follow up Referrals: Orthopedics with Alec Dietrich MD ([facility]) PCP Follow-up New Medications: Cyclobenzaprine (Flexeril) 10 Mg Tab 5 MG PO Q8HR PRN MUSCLE SPASM #10 Ref 0 TAB Hydrocodone-Acetaminophen (Hydrocodone-Acetaminophen) 7.5-325 mg Tab 1 TAB PO Q4H PRN PAIN SCALE 1 TO 10 #50 Ref 0 TAB Continued Medications: Acetaminophen (Mapap Extra Strength) 500 Mg Tab 500-1000 MG PO Q4-6H PRN PAIN Ref [address] (Aspirin EC) 81 Mg Tabdr 81 MG PO DAILY Ref 0 TAB Dicyclomine (Bentyl) 10 Mg Cap 20 MG PO TID PRN Bowel Management Ref 0 CAP Digoxin (Digoxin) 0.125 Mg Tab 0.125 MG PO DAILY Regulate Heart Beat #30 Ref 0 TAB Diphenhydramine (Diphenhydramine) 25 Mg Cap 25 MG PO HS PRN INSOMNIA Ref 0 CAP Estradiol (Estradiol) 0.5 Mg Tab 0.5 MG PO DAILY Estrogen Supplements #30 Ref [address] (Ferrous Sulfate DR) 324 Mg Tabdr 324 MG PO DAILY Nutritional Supplement #30 Ref 0 TAB Losartan (Cozaar) 100 Mg Tab 100 MG PO DAILY Blood Pressure Management #30 Ref 0 TAB Naproxen (Naproxen) 500 Mg Tab 500 MG PO BID #60 Ref 0 TAB Prednisolone Acetate Opth 1% (Pred Forte Opth 1%) 1% Susp 1 DROP EACH EYE TID Inflammation #1 Ref 0 BOTTLE Solifenacin (Vesicare) 10 Mg Tab 10 MG PO DAILY Urinary Symptom Managemen #30 Ref 0 TAB Tyshawn Womack MD Jan 10, 2017 07:55
[2017-01-10] MEDS: ESTRADIOL 1 MG TAB PO SCH (07:56)
[2017-01-10] MEDS ORDERED: CYCL1TAB29 PO (07:56)
[2017-01-10] MEDS: DOCUSATE SODIUM 100 MG CAP PO SCH (07:56)
[2017-01-10] MEDS: DIGOXIN 0.125 MG TAB PO SCH (07:56)
[2017-01-10] MEDS: FERROUS SULFATE 325 MG (65 MG ELEMENTAL IRON) TAB PO SCH (07:56)
[2017-01-10] MEDS ORDERED: HYDR-3580 PO (07:57)
[2017-01-10] MEDS: SODIUM CHLORIDE 0.9% FLUSH 5 ML FLUSH IVF SCH (07:58)
[2017-01-10 08:00] VITALS: BP 147/71; PULSE 74; RESP 20; TEMP 97.2; O2SAT 92
[2017-01-10 11:40] VITALS: BP 135/69; PULSE 72; RESP 20; TEMP 97.3; O2SAT 98
--- NOTE | 2017-01-17 13:37 | MP ---
cc: Alaina RODRIGUEZ. DATE OF SURGERY: 01/07/2017 PREOPERATIVE DIAGNOSIS Comminuted periprosthetic fracture right patella, right total knee replacement. POSTOPERATIVE DIAGNOSIS Comminuted periprosthetic fracture right patella, right total knee replacement. OPERATION PERFORMED Partial patellectomy, right knee. SURGEON Barber Rodriguez MD DIRECTOR OF CODING Bhavesh Pineda, CSFA ANESTHESIA General endotracheal with supplemental adductor canal block and local. INDICATIONS AND FINDINGS This is a 66-year-old woman who [facility] She was holding a ladder for her when he fell off the ladder on top of her and her knee struck the pavement causing injury to her knee. She was brought to [facility] Emergency Department and found to have a fracture around her patella on her total knee. Physical findings showed an obvious gap in the area where the patella should have been with the patella being high-riding. There was tenderness and an effusion. X-rays showed some fragmentation on the distal pole of the patella, perhaps a small amount of superior pole and a very high riding patella with an intact total knee arthroplasty. Operative findings showed an obvious fracture of the distal pole of the patella with some fragments within a tendon. The patella itself was intact. The medial and lateral retinaculum were torn out to about the level of the collateral ligaments. In addition, there was a small fragment of cement that was fairly loose above it near the patella superior pole. The patella prosthesis itself was solidly in place and well-cemented and well-fixed. PROCEDURE The patient was brought to the operating room and a general endotracheal anesthetic was administered. She also had an adductor canal block carried out. She received prophylactic antibiotics in the form of Ancef and also received tranexamic acid preoperatively. She was placed into a supine position on the operating table. A pneumatic tourniquet was applied to the right thigh but was not elevated during the procedure. The right leg was then prepped with alcohol, Hibiclens and ChloraPrep and draped in the usual manner with the knee draped free. An appropriate timeout procedure was carried out. An anterior incision was made through her prior incisional scar after local anesthesia was administered with Exparel. The incision was deepened through the subcutaneous tissues to the retinacular structures which were exposed. This exposed the fracture site immediately. Clot was debrided from the fracture site itself as well as fluid from the knee. This was approximately 100 mL of prior fluid. There was not an excessive amount of bleeding. The knee was then irrigated well with lactated Ringer's solution. The fragments at the distal pole of the patella were small and numerous and were removed. It was felt that a partial patellectomy would probably be appropriate because of the intact nature of the patella. The small fragment of cement was identified and was brought into position and removed. The knee was irrigated. #5 FiberWire suture was then used to reapproximate the retinaculum medially and laterally and in the anterior aspect where the patella attached to the patella tendon. This was done with a #5 FiberWire using a Krackow technique. After the initial FiberWire was placed there was good apposition of the patella tendon to the inferior pole of the patella. The inferior pole of the patella was fenestrated for ease in healing. It was checked to see whether it would be appropriate to drill holes into the patella for transfixion with suture material but this would have interfered with the prosthesis and was felt to be inappropriate. A second #5 FiberWire was then used to reinforce the first one in a slightly different position. This gave excellent position and alignment. Local anesthesia was administered throughout the tear and injury area with the Exparel. Medial and lateral repairs were then carried out with #2 FiberWire bringing this into apposition with a combination of [id number] sutures as well as Darwin-Kennedy and Krackow techniques. The knee was taken through a range of motion which was easily to 135 degrees without gapping of the ligament. Tracking of the patella appeared to be appropriate. The subcutaneous tissues were then closed with 2-0 Vicryl interrupted simple sutures with buried knots. The skin was closed with continuous subcuticular closure of 4-0 Monocryl. The wound was dressed with Steri-Strips followed by dry dressing, sterile Sof-Rol and Laith bandage. The patient was placed into a knee immobilizer and transferred to the recovery room in satisfactory condition having tolerated the procedure well. Counts were correct. Specimens none. Estimated blood loss 20 mL from the procedure. MD RAMSEY Rivera/ROSIO /12:47 PM /1:30 PM
== END 2017-01-10 12:15 | disposition home health service (06) | DRG 488 ==
LOC: NEPE 13:46 → NEDA 16:34 → N06B 19:09
PROVIDERS: ADMIT Internal Medicine; ATTEND Internal Medicine
PROC: 0LMR0ZZ Reattachment of Left Knee Tendon, Open Approach (ICD-10-PCS; 2017-01-07)
PROC: 3E0T3CZ (ICD-10-PCS; 2017-01-07)
PROC: 0QBD0ZZ Excision of Right Patella, Open Approach (ICD-10-PCS; principal; 2017-01-07 13:05)
DX: S82.041A Displaced comminuted fracture of right patella, initial encounter for closed fracture (principal); M97.11XA Periprosthetic fracture around internal prosthetic right knee joint, initial encounter; I48.2 Chronic atrial fibrillation; I10 Essential (primary) hypertension; S51.812A Laceration without foreign body of left forearm, initial encounter; M62.838 Other muscle spasm; M19.90 Unspecified osteoarthritis, unspecified site; N39.3 Stress incontinence (female) (male); W20.8XXA Other cause of strike by thrown, projected or falling object, initial encounter; Z88.5 Allergy status to narcotic agent; Z96.651 Presence of right artificial knee joint
CPT/HCPCS: 70450; 71010; 71101; 71250; 73010; 73552; 73560; 73564; 73590; 80053; 85014; 85018; 85025; 85610; 85730; 86850; 86900; 86901; 93005; 94150; C9290; J0131; J0690; J1170; J1580; J1885; J2405; J3010; J7030; J7120; L1830

== ENCOUNTER → 2017-04-18 | Outpatient (CLI) | payer MEDICARE ==
[~2017-04-18] MED LIST changes: +CYCL1TAB29 PO; +HYDR-3580 PO; +PRED1SUS EACH EYE
[2017-04-18 08:47] LABS: HEMATOCRIT 35.8 % (35.0-46.0); MEAN CELL VOLUME 94.8 FL (80.0-100.0); MEAN CORPUSCULAR HEMOGLOBIN 31.8 PG (27.0-34.0); MEAN CORPUSCULAR HGB CONC 33.5 % (32.0-36.0); PLATELET COUNT 265 TH/MM3 (150-450); RED BLOOD COUNT 3.77 MIL/MM3 (4.00-5.30); RED CELL DISTRIBUTION WIDTH 13.3 % (11.6-17.2); REVIEW FLAG FINAL; WHITE BLOOD COUNT 7.6 TH/MM3 (4.0-11.0)
[2017-04-18 09:24] LABS: ANION GAP 8 MEQ/L (5-15); AST (GOT) 10 U/L (15-37); BLOOD UREA NITROGEN 14 MG/DL (7-18); CHLORIDE 106 MEQ/L (98-107); GLOMERULAR FILTRATION RATE 52 ML/MIN (>89); GLUCOSE,FASTING 90 MG/DL (74-99); POTASSIUM 3.9 MEQ/L (3.5-5.1); SODIUM (NA) 141 MEQ/L (136-145)
[2017-04-18 09:38] LABS: ALKALINE PHOSPHATASE 49 U/L (45-117); ALT (GPT) 15 U/L (10-53); FREE T4 1.09 NG/DL (0.76-1.46); HDL CHOLESTEROL 61.2 MG/DL (40.0-60.0); LDL CHOLESTEROL 71 MG/DL (0-99); TOTAL BILIRUBIN ADULT 0.4 MG/DL (0.2-1.0)
== END ==
LOC: CLAB 08:17
PROVIDERS: ATTEND Family Medicine
DX: N32.81 Overactive bladder (principal); I10 Essential (primary) hypertension; K21.9 Gastro-esophageal reflux disease without esophagitis; K57.30 Diverticulosis of large intestine without perforation or abscess without bleeding; I48.0 Paroxysmal atrial fibrillation; M15.9 Polyosteoarthritis, unspecified
CPT/HCPCS: 36415; 80053; 80061; 84439; 84443; 85027